=== PATIENT | female | born 1995 | race Caucasian/White ===

== ENCOUNTER 2017-07-10 22:38 | Emergency (ER) | payer BC, OTHER ==
--- NOTE | 2017-07-10 22:47 | ED ---
General Adult HPI - General Source: RN notes reviewed, old records reviewed <Best Guthrie - Last Filed: 07/10/17 23:47> <Delfino Guhtrie - Last Filed: 07/11/17 04:52> - General Stated complaint: Mental Health Time Seen by Provider: 07/10/17 22:46 - History of Present Illness Initial comments: This is a 22-year-old female the ER for evaluation of psychiatric illness, suicidal thoughts and attempts. Patient told family members she was going to jump off the bridge attempt to commit suicide today. Patient was found by PD and then brought to ER. The patient did try to run out of hospital, patient was then combative belligerent with staff, patient was severely emotional and not cooperative. Patient did admit to alcohol tonight (Best Guthrie) - Related Data Previous Rx's Medication Instructions Recorded Hydrocodone/Acetaminophen [[place] 1 each PO Q4HR PRN #20 tab 08/23/15 5-325] Ibuprofen [Motrin] 800 mg PO Q6HR PRN #20 tab 08/23/15 Allergies Allergy/AdvReac Type Severity Reaction Status Date / Time No Known Allergies Allergy Verified 08/23/15 14:19 Review of Systems ROS Other: All systems not noted in ROS Statement are negative. <Best Guthrie - Last Filed: 07/10/17 23:47> ROS Other: All systems not noted in ROS Statement are negative. <Delfino Guthrie - Last Filed: 07/11/17 04:52> ROS Statement: Those systems with pertinent positive or pertinent negative responses have been documented in the HPI. Past Medical History Past Medical History: No Reported History History of Any Multi-Drug Resistant Organisms: None Reported Past Surgical History: No Surgical Hx Reported Past Psychological History: ADD/ADHD, Anxiety Smoking Status: Current every day smoker Past Alcohol Use History: Rare Past Drug Use History: None Reported <Best Guthrie - Last Filed: 07/10/17 23:47> General Exam General appearance: alert, in no apparent distress, anxious, in distress Head exam: Present: atraumatic, normocephalic, normal inspection Eye exam: Present: normal appearance, PERRL, EOMI. Absent: scleral icterus, conjunctival injection, periorbital swelling ENT exam: Present: normal exam, mucous membranes moist Neck exam: Present: normal inspection. Absent: tenderness, meningismus, lymphadenopathy Respiratory exam: Present: normal lung sounds bilaterally. Absent: respiratory distress, wheezes, rales, rhonchi, stridor Cardiovascular Exam: Present: regular rate, normal rhythm, normal heart sounds. Absent: systolic murmur, diastolic murmur, rubs, gallop, clicks GI/Abdominal exam: Present: soft, normal bowel sounds. Absent: distended, tenderness, guarding, rebound, rigid Extremities exam: Present: normal inspection, full ROM, normal capillary refill. Absent: tenderness, pedal edema, joint swelling, calf tenderness Back exam: Present: normal inspection Neurological exam: Present: alert, oriented X3, CN II-XII intact Psychiatric exam: Present: normal affect, normal mood Skin exam: Present: warm, dry, intact, normal color. Absent: rash <Best Guthrie - Last Filed: 07/10/17 23:47> Course <Best Guthrie - Last Filed: 07/10/17 23:47> <Delfino Guthrie - Last Filed: 07/11/17 04:52> Vital Signs 07/10/17 22:49 Temperature 97.6 F Pulse Rate 101 H Respiratory 24 Rate Blood Pressure 144/84 O2 Sat by Pulse 97 Oximetry - Reevaluation(s) Reevaluation #1: 07/10/17 23:48 Patient is at this point appropriately calm and relaxed, will remove 07/10/17 23:48 Restraints will BE removed (Best Guthrie) Procedures - Restraint - Face to Face Restraint Occurrence 1 Patient's Immediate Situation: Endangers self safety, Endangers others' safety, Endangers staff safety Patient's Reaction to the Intervention: Uncooperative, Angry, Belligerent Patient's Medical & Behavioral Condition: Awake, Anxious, Agitated Face to Face Eval of Restraint Date: 07/10/17 Face to Face Eval of Restraint Time: 22:30 <Best Guthrie - Last Filed: 07/10/17 23:47> Medical Decision Making <Best Guthrie - Last Filed: 07/10/17 23:47> <Delfino Guthrie - Last Filed: 07/11/17 04:52> - Medical Decision Making The patient was endorsed to me at shift change and was pending evaluation by psychiatry after she was sober. Patient was deemed to be sober was evaluated she currently isn't a risk to herself or anyone else (Delfino Guthrie) Disposition <Best Guthrie - Last Filed: 07/10/17 23:47> <Delfino Guthrie - Last Filed: 07/11/17 04:52> Clinical Impression: Adjustment reaction, Alcohol intoxication Disposition: HOME SELF-CARE Condition: Good Instructions: Alcohol Intoxication (ED), Mood Disorders (ED) Referrals: None,Stated [Primary Care Provider] - 1-2 days
[2017-07-11 05:01] VITALS: BP 150/92; PULSE 86; RESP 16; TEMP 97.4
== END 2017-07-11 05:01 | disposition home or self-care (01) ==
LOC: EC 22:38
DX: F43.20 Adjustment disorder, unspecified (principal); F10.129 Alcohol abuse with intoxication, unspecified; R45.851 Suicidal ideations; F17.200 Nicotine dependence, unspecified, uncomplicated
CPT/HCPCS: 82075; 99284

== ENCOUNTER 2017-11-30 04:51 | Inpatient (IN) | payer BC, OTHER ==
[2017-11-30] MEDS ORDERED: SODIUM CHLORIDE 0.9% 500 ML IV STA (05:08)
[2017-11-30] MEDS ORDERED: SODIUM CHLORIDE 0.9% 1,000 ML IV STA ×2 (05:08→06:55)
[2017-11-30] MEDS ORDERED: KETOROLAC 30 MG/ML 1 ML VIAL IVP STA (05:09)
[2017-11-30] MEDS ORDERED: ACETAMINOPHEN TAB 500 MG TAB PO STA (05:09)
[2017-11-30 05:35] LABS: Basophils # (A) 0.1 k/uL (0-0.2); Basophils % (A) 1 %; Eosinophils # (A) 0.2 k/uL (0-0.7); Eosinophils % (A) 1 %; HCT 38.9 % (34.0-46.0); HGB 13.5 gm/dL (11.4-16.0); Lymphocytes # (A) 1.6 k/uL (1.0-4.8); Lymphocytes % (A) 12 %; MCH 33.2 pg (25.0-35.0); MCHC 34.7 g/dL (31.0-37.0); MCV 95.8 fL (80.0-100.0); Mean Platelet Volume 7.1; Monocytes # (A) 0.9 k/uL (0-1.0); Monocytes % (A) 7 %; Neutrophils # (A) 10.2 k/uL (1.3-7.7); Neutrophils % (A) 77 %; Platelet Count 240 k/uL (150-450); RBC 4.07 m/uL (3.80-5.40); RDW 13.4 % (11.5-15.5); WBC 13.2 k/uL (3.8-10.6)
[2017-11-30 05:38] LABS: Appearance,Urine Clear (Clear); Bacteria,Urine Rare /hpf; Bilirubin,Urine Negative (Negative); Blood,Urine Moderate (Negative); Color,Urine Yellow; Glucose,Urine (UA) Negative (Negative); Ketones,Urine 1+ (Negative); Leukocyte Esterase,Urine Negative (Negative); Mucus,Urine Rare /hpf; Nitrite,Urine Negative (Negative); PH, Urine 5.5 (5.0-8.0); Protein,Urine Negative (Negative); RBC,Urine 1 /hpf (0-5); Specific Gravity,Urine 1.015 (1.001-1.035); Squamous Epithelial Cell,Urine <1 /hpf (0-4); Urobilinogen,Urine <2.0 mg/dL (<2.0); WBC,Urine 1 /hpf (0-5)
--- NOTE | 2017-11-30 05:45 | ED ---
General Adult HPI - General Chief complaint: Extremity Problem,Nontraumatic Stated complaint: Medication reaction Time Seen by Provider: 11/30/17 04:52 Source: patient, RN notes reviewed, old records reviewed Mode of arrival: EMS Limitations: no limitations - History of Present Illness Initial comments: This is a 22-year-old female the ER for evaluation per patient does say for evaluation of multiple nonspecific complaints, left leg pain despite pain. Patient also complains of sore throat back pain. No travel history no known sick contacts. Patient has positive fever. She states she does not feel well. - Related Data Home Medications Medication Instructions Recorded Confirmed No Known Home Medications [No 11/30/17 11/30/17 Known Home Medications] Allergies Allergy/AdvReac Type Severity Reaction Status Date / Time No Known Allergies Allergy Verified 11/30/17 07:36 Review of Systems ROS Statement: Those systems with pertinent positive or pertinent negative responses have been documented in the HPI. ROS Other: All systems not noted in ROS Statement are negative. Past Medical History Past Medical History: No Reported History History of Any Multi-Drug Resistant Organisms: None Reported Past Surgical History: No Surgical Hx Reported Past Psychological History: ADD/ADHD, Anxiety Smoking Status: Current every day smoker Past Alcohol Use History: Rare Past Drug Use History: None Reported - Past Family History Mother Additional Family Medical History / Comment(s): Mother has herniated discs Father History Unknown: Yes General Exam Limitations: no limitations General appearance: alert, in no apparent distress Head exam: Present: atraumatic, normocephalic, normal inspection Eye exam: Present: normal appearance, PERRL, EOMI. Absent: scleral icterus, conjunctival injection, periorbital swelling ENT exam: Present: normal exam, mucous membranes moist Neck exam: Present: normal inspection. Absent: tenderness, meningismus, lymphadenopathy Respiratory exam: Present: normal lung sounds bilaterally. Absent: respiratory distress, wheezes, rales, rhonchi, stridor Cardiovascular Exam: Present: regular rate, normal rhythm, normal heart sounds. Absent: systolic murmur, diastolic murmur, rubs, gallop, clicks GI/Abdominal exam: Present: soft, normal bowel sounds. Absent: distended, tenderness, guarding, rebound, rigid Extremities exam: Present: normal inspection, full ROM, normal capillary refill. Absent: tenderness, pedal edema, joint swelling, calf tenderness Back exam: Present: normal inspection Neurological exam: Present: alert, oriented X3, CN II-XII intact Psychiatric exam: Present: normal affect, normal mood Skin exam: Present: warm, dry, intact, normal color. Absent: rash Course Vital Signs 11/30/17 11/30/17 04:58 06:30 Temperature 100.8 F H Pulse Rate 109 H Respiratory 16 16 Rate Blood Pressure 167/95 115/63 O2 Sat by Pulse 95 95 Oximetry - Reevaluation(s) Reevaluation #1: Patient is improved with fever control, hydration Medical Decision Making - Medical Decision Making 22 female the ER for evaluation of fever back pain left leg pain. On be in rhabdomyolysis. Patient does have persistent fever, x-ray and urine are negative. We'll admit for broad-spectrum antibiotics, patient To continue IV hydration, symptom management - Lab Data Result diagrams: 11/30/17 05:16 11/30/17 05:16 Lab Results 11/30/17 11/30/17 11/30/17 Range/Units 05:16 05:16 05:16 WBC (3.8-10.6) k/uL RBC (3.80-5.40) m/uL Hgb (11.4-16.0) gm/dL Hct (34.0-46.0) % MCV (80.0-100.0) fL MCH (25.0-35.0) pg MCHC (31.0-37.0) g/dL RDW (11.5-15.5) % Plt Count (150-450) k/uL Neutrophils % % Lymphocytes % % Monocytes % % Eosinophils % % Basophils % % Neutrophils # (1.3-7.7) k/uL Lymphocytes # (1.0-4.8) k/uL Monocytes # (0-1.0) k/uL Eosinophils # (0-0.7) k/uL Basophils # (0-0.2) k/uL Sodium 133 L (137-145) mmol/L Potassium 4.5 (3.5-5.1) mmol/L Chloride 96 L (98-107) mmol/L Carbon Dioxide 28 (22-30) mmol/L Anion Gap 9 mmol/L BUN 12 (7-17) mg/dL Creatinine 0.50 L (0.52-1.04) mg/dL Est GFR (CKD-EPI)AfAm >90 (>60 ml/min/1.73 sqM) Est GFR (CKD-EPI)NonAf >90 (>60 ml/min/1.73 sqM) Glucose 110 H (74-99) mg/dL Calcium 9.8 (8.4-10.2) mg/dL Phosphorus 2.7 (2.5-4.5) mg/dL Magnesium 1.7 (1.6-2.3) mg/dL Total Bilirubin 0.5 (0.2-1.3) mg/dL AST 249 H (14-36) U/L ALT 80 H (9-52) U/L Alkaline Phosphatase 88 (38-126) U/L Total Creatine Kinase 9477 H (30-135) U/L CK-MB (CK-2) 66.2 H* (0.0-2.4) ng/mL CK-MB (CK-2) Rel Index Troponin I (0.000-0.034) ng/mL C-Reactive Protein 39.9 H (<10.0) mg/L Total Protein 7.1 (6.3-8.2) g/dL Albumin 4.3 (3.5-5.0) g/dL Urine Color Yellow Urine Appearance Clear (Clear) Urine pH 5.5 (5.0-8.0) Ur Specific [place] 1.015 (1.001-1.035) Urine Protein Negative (Negative) Urine Glucose (UA) Negative (Negative) Urine Ketones 1+ H (Negative) Urine Blood Moderate H (Negative) Urine Nitrite Negative (Negative) Urine Bilirubin Negative (Negative) Urine Urobilinogen <2.0 (<2.0) mg/dL Ur Leukocyte Esterase Negative (Negative) Urine RBC 1 (0-5) /hpf Urine WBC 1 (0-5) /hpf Ur Squamous Epith Cells <1 (0-4) /hpf Urine Bacteria Rare H (None) /hpf Urine Mucus Rare H (None) /hpf Urine HCG, Qual (Not Detectd) Group A Strep Rapid (Negative) 11/30/17 11/30/17 11/30/17 Range/Units 05:16 05:16 05:16 WBC 13.2 H (3.8-10.6) k/uL RBC 4.07 (3.80-5.40) m/uL Hgb 13.5 (11.4-16.0) gm/dL Hct 38.9 (34.0-46.0) % MCV 95.8 (80.0-100.0) fL MCH 33.2 (25.0-35.0) pg MCHC 34.7 (31.0-37.0) g/dL RDW 13.4 (11.5-15.5) % Plt Count 240 (150-450) k/uL Neutrophils % 77 % Lymphocytes % 12 % Monocytes % 7 % Eosinophils % 1 % Basophils % 1 % Neutrophils # 10.2 H (1.3-7.7) k/uL Lymphocytes # 1.6 (1.0-4.8) k/uL Monocytes # 0.9 (0-1.0) k/uL Eosinophils # 0.2 (0-0.7) k/uL Basophils # 0.1 (0-0.2) k/uL Sodium (137-145) mmol/L Potassium (3.5-5.1) mmol/L Chloride (98-107) mmol/L Carbon Dioxide (22-30) mmol/L Anion Gap mmol/L BUN (7-17) mg/dL Creatinine (0.52-1.04) mg/dL Est GFR (CKD-EPI)AfAm (>60 ml/min/1.73 sqM) Est GFR (CKD-EPI)NonAf (>60 ml/min/1.73 sqM) Glucose (74-99) mg/dL Calcium (8.4-10.2) mg/dL Phosphorus (2.5-4.5) mg/dL Magnesium (1.6-2.3) mg/dL Total Bilirubin (0.2-1.3) mg/dL AST (14-36) U/L ALT (9-52) U/L Alkaline Phosphatase (38-126) U/L Total Creatine Kinase (30-135) U/L CK-MB (CK-2) (0.0-2.4) ng/mL CK-MB (CK-2) Rel Index Troponin I <0.012 (0.000-0.034) ng/mL C-Reactive Protein (<10.0) mg/L Total Protein (6.3-8.2) g/dL Albumin (3.5-5.0) g/dL Urine Color Urine Appearance (Clear) Urine pH (5.0-8.0) Ur Specific [place] (1.001-1.035) Urine Protein (Negative) Urine Glucose (UA) (Negative) Urine Ketones (Negative) Urine Blood (Negative) Urine Nitrite (Negative) Urine Bilirubin (Negative) Urine Urobilinogen (<2.0) mg/dL Ur Leukocyte Esterase (Negative) Urine RBC (0-5) /hpf Urine WBC (0-5) /hpf Ur Squamous Epith Cells (0-4) /hpf Urine Bacteria (None) /hpf Urine Mucus (None) /hpf Urine HCG, Qual (Not Detectd) Group A Strep Rapid Negative (Negative) 11/30/17 Range/Units 05:16 WBC (3.8-10.6) k/uL RBC (3.80-5.40) m/uL Hgb (11.4-16.0) gm/dL Hct (34.0-46.0) % MCV (80.0-100.0) fL MCH (25.0-35.0) pg MCHC (31.0-37.0) g/dL RDW (11.5-15.5) % Plt Count (150-450) k/uL Neutrophils % % Lymphocytes % % Monocytes % % Eosinophils % % Basophils % % Neutrophils # (1.3-7.7) k/uL Lymphocytes # (1.0-4.8) k/uL Monocytes # (0-1.0) k/uL Eosinophils # (0-0.7) k/uL Basophils # (0-0.2) k/uL Sodium (137-145) mmol/L Potassium (3.5-5.1) mmol/L Chloride (98-107) mmol/L Carbon Dioxide (22-30) mmol/L Anion Gap mmol/L BUN (7-17) mg/dL Creatinine (0.52-1.04) mg/dL Est GFR (CKD-EPI)AfAm (>60 ml/min/1.73 sqM) Est GFR (CKD-EPI)NonAf (>60 ml/min/1.73 sqM) Glucose (74-99) mg/dL Calcium (8.4-10.2) mg/dL Phosphorus (2.5-4.5) mg/dL Magnesium (1.6-2.3) mg/dL Total Bilirubin (0.2-1.3) mg/dL AST (14-36) U/L ALT (9-52) U/L Alkaline Phosphatase (38-126) U/L Total Creatine Kinase (30-135) U/L CK-MB (CK-2) (0.0-2.4) ng/mL CK-MB (CK-2) Rel Index Troponin I (0.000-0.034) ng/mL C-Reactive Protein (<10.0) mg/L Total Protein (6.3-8.2) g/dL Albumin (3.5-5.0) g/dL Urine Color Urine Appearance (Clear) Urine pH (5.0-8.0) Ur Specific [place] (1.001-1.035) Urine Protein (Negative) Urine Glucose (UA) (Negative) Urine Ketones (Negative) Urine Blood (Negative) Urine Nitrite (Negative) Urine Bilirubin (Negative) Urine Urobilinogen (<2.0) mg/dL Ur Leukocyte Esterase (Negative) Urine RBC (0-5) /hpf Urine WBC (0-5) /hpf Ur Squamous Epith Cells (0-4) /hpf Urine Bacteria (None) /hpf Urine Mucus (None) /hpf Urine HCG, Qual Not Detected (Not Detectd) Group A Strep Rapid (Negative) - Radiology Data Radiology results: report reviewed (CT lumbar spine, negative for acute disease CT abdomen and pelvis negative for acute disease, [place] lumbar spinal be pending), image reviewed Disposition Clinical Impression: Back pain, Left leg pain, Fever, Rhabdomyolysis Disposition: ADMITTED IP TO THIS HOSP Condition: Fair Is patient prescribed a controlled substance at d/c from ED?: No
[2017-11-30 05:50] LABS: ALT 80 U/L (9-52); AST 249 U/L (14-36); Albumin 4.3 g/dL (3.5-5.0); Alkaline Phosphatase 88 U/L (38-126); Anion Gap 9 mmol/L; Blood Urea Nitrogen 12 mg/dL (7-17); C Reactive Protein 39.9 mg/L (<10.0); Calcium 9.8 mg/dL (8.4-10.2); Carbon Dioxide 28 mmol/L (22-30); Chloride 96 mmol/L (98-107); Glucose 110 mg/dL (74-99); Magnesium 1.7 mg/dL (1.6-2.3); Phosphorus 2.7 mg/dL (2.5-4.5); Potassium 4.5 mmol/L (3.5-5.1); Sodium 133 mmol/L (137-145); Total Bilirubin 0.5 mg/dL (0.2-1.3); Total Protein 7.1 g/dL (6.3-8.2)
[2017-11-30 06:04] LABS: Creatine Kinase MB 66.2 ng/mL (0.0-2.4)
--- NOTE | 2017-11-30 06:16 | XR ---
EXAMINATION TYPE: XR chest 2V DATE OF EXAM: 11/30/2017 COMPARISON: NONE HISTORY: Cough TECHNIQUE: Frontal and lateral views of the chest are obtained. FINDINGS: Heart and mediastinum are normal. Lungs are clear. Diaphragm is normal. Bony thorax is int act. IMPRESSION: Normal chest
--- NOTE | 2017-11-30 06:16 | XR ---
EXAMINATION TYPE: XR knee complete LT DATE OF EXAM: 11/30/2017 COMPARISON: NONE HISTORY: Knee pain TECHNIQUE: 3 views FINDINGS: I see no fracture nor dislocation. Joint spaces are normal. There is no sign of knee joint effusion. IMPRESSION: Normal left knee.
[2017-11-30] MEDS ORDERED: VANCOMYCIN IV PER PHARMACY 1 EACH MISC MISCELLANE PRN (06:19)
[2017-11-30] MEDS ORDERED: AMPICILLIN-SULBACTAM 3 GM in SODIUM CHLORIDE 0.9% 100 ML IVPB STA (06:19)
[2017-11-30] MEDS ORDERED: SODIUM CHLORIDE 0.9% 1,000 ML IV ONE (06:54)
[2017-11-30] MEDS ORDERED: VANCOMYCIN 1,500 MG in SODIUM CHLORIDE 0.9% 250 ML IVPB ONE (07:00)
--- NOTE | 2017-11-30 07:21 | CT ---
EXAMINATION TYPE: CT lumbar spine w con DATE OF EXAM: 11/30/2017 COMPARISON: NONE HISTORY: Low back pain, abdominal pain CT DLP: Images pulled from abd/pel mGycm CONTRAST: CT scan of the lumbar is performed with IV Contrast, patient injected with 100 mL of Isovue 300. TECHNIQUE: CT of the lumbar spine is performed on a spiral scan at 3 mm thick sections. Reconstructed images are performed in the coronal and sagittal planes. FINDINGS: Disc spaces are evaluated in the axial plane. Reconstructed images in the coronal and sagit jevon plane are reviewed. Disc heights are preserved. No focal disc herniation or significant disc bulge is evident. No spinal canal stenosis or neural foraminal stenosis is present. There is some sacroiliac joint degenerative c hange present IMPRESSION: 1. Sacroiliac joint degenerative changes. 2. Normal CT lumbar spine
--- NOTE | 2017-11-30 07:26 | CT ---
EXAMINATION TYPE: CT abdomen pelvis w con DATE OF EXAM: 11/30/2017 COMPARISON: NONE INDICATION: Low back pain, abdominal pain DLP: 2984 mGycm, Automated exposure control for dose reduction was used. CONTRAST: 100 mL of Isovue 300. Study performed without Oral Contrast TECHNIQUE: Axial images were obtained from above the diaphragm to the pubic rami in the axial plane a t 5 mm thick sections. Reconstructed images are reviewed on the computer in the coronal plane. FINDINGS: Limited CT sections are obtained the lung bases. The lung bases are clear. CT ABDOMEN: Liver: Normal Spleen: Normal Pancreas: Normal Adrenal glands: There is calcification within the posterior limb of the right adrenal gland may repre sent prior hemorrhage. No enlargement of the adrenal glands is evident. Gallbladder: Decompressed but otherwise unremarkable Kidneys: No masses are evident. No hydronephrosis is present. No cysts are present. Delayed images were obtained through the kidneys, which remain unremarkable. Aorta: Normal Inferior vena cava: Normal. CT PELVIS: Fecal debris is through the colon. Small bowel loops without oral contrast appear unremarkable. Appendix: Normal as visualized. Urinary bladder: Normal. Genitourinary structures: Uterus has some prominent endometrium. There is a large left ovarian cyst m easuring 5.4 x 4.9 cm. Right adnexal regions unremarkable. Osseous structures: No suspicious lytic or sclerotic lesions. CT lumbar spine was reported separately . Sacroiliac joint degenerative change may be present. IMPRESSIONS: 1. Large left ovarian cyst. This could be followed with ultrasound. 2. CT abdomen otherwise appears unremarkable.
[2017-11-30] MEDS: AMPICILLIN-SULBACTAM 3 GM in SODIUM CHLORIDE 0.9% 100 ML IVPB SCH ×3 (12:44→23:35)
[2017-11-30] MEDS: KETOROLAC 30 MG/ML 1 ML VIAL IVP PRN ×2 (16:25→23:35)
[2017-11-30] MEDS: VANCOMYCIN 1,500 MG in SODIUM CHLORIDE 0.9% 250 ML IVPB SCH (18:24)
--- NOTE | 2017-11-30 20:52 | MR ---
EXAMINATION TYPE: MR lumbar spine wo/w con DATE OF EXAM: 11/30/2017 COMPARISON: NONE HISTORY: Lt leg pain, fever, abscess TECHNIQUE: Multiplanar, multisequence images of the lumbar spine were acquired utilizing 10 mL intravenous Gadav ist gadolinium contrast. The lumbar vertebra have normal spacing and alignment. Neural foramina appear widely patent. Posterio r elements are intact. Lumbar nerve roots appear normal. There is no lumbar paraspinal mass. There is no compression fracture. Sacroiliac joints are partly visualized and appear normal. I see no bony de structive process. IMPRESSION: Normal MR scan of the lumbar spine.
--- NOTE | 2017-11-30 23:23 | P.HPIM ---
History of Present Illness H&P Date: 11/30/17 Chief Complaint: Back pain and left thigh swelling Patient is a 22-year-old female without sputum and past medical history came to ER with complaints of left leg swelling started last night. Patient was also having fever and chills at home. Patient says that she was having cough and upper respiratory infection about one half week ago and also was having hoarseness. Patient improved symptomatically and developed back pain about 4 days back. Patient also developed leg swelling mainly left thigh swelling last night along with fever and chills which made her to come to Hospital for further evaluation. Patient was found have elevated CPK level, liver enzymes and mild leukocytosis. Patient had MRI lumbar spine showed no abnormality CT abdomen and pelvis showed large ovarian cyst. Otherwise unremarkable CT LS spine showed sacroiliac joint degenerative changes X-ray of the left knee and chest x-ray unremarkable. CRP 39.9 and slightly elevated liver enzymes AST and ALT UA negative for infection Patient denied any recent travel or unusual food intake. Strep throat is negative Review of Systems Constitutional: Patient denies any fever or chills . No generalized weakness or weight loss. Abdomen: Patient denied nausea vomiting and diarrhea and abdominal pain. Cardiovascular: Patient denies any chest pain or short of breath no palpitations. Respiratory: patient denied any cough is from production. No shortness of breath Neurologic: Patient denied any numbness or tingling headache. Musculoskeletal: Patient denies any complaints of joint swelling or deformity. Left thigh swelling and back pain Skin: Negative Psychiatric: Negative Endocrine: No heat or cold intolerance. No recent weight gain. Genitourinary: No dysuria or hematuria. All other 14 point ROS negative except the above Past Medical History Past Medical History: No Reported History History of Any Multi-Drug Resistant Organisms: None Reported Past Surgical History: No Surgical Hx Reported Past Anesthesia/Blood Transfusion Reactions: Unable to Obtain Additional Past Anesthesia/Blood Transfusion Reaction / Comment(s): Pt has never had general or spinal anesthesia Smoking Status: Current every day smoker - Past Family History Mother Additional Family Medical History / Comment(s): Mother has herniated discs Father History Unknown: Yes Medications and Allergies Home Medications Medication Instructions Recorded Confirmed Type No Known Home Medications [No 11/30/17 11/30/17 History Known Home Medications] Allergies Allergy/AdvReac Type Severity Reaction Status Date / Time No Known Allergies Allergy Verified 11/30/17 07:36 Physical Exam Vitals: Vital Signs Temp Pulse Pulse Resp BP BP Pulse Ox 11/30/17 08:25 98.1 F 106 H 20 124/82 97 11/30/17 06:30 109 H 16 115/63 95 11/30/17 04:58 100.8 F H 16 167/95 95 Intake and Output 11/29/17 11/30/17 11/30/17 22:59 06:59 14:59 Intake Total 200 Balance 200 Intake: Oral 200 Other: # Voids 1 Weight 86.183 kg 98.5 kg PHYSICAL EXAMINATION: Patient is lying in the bed comfortably, no acute distress, awake alert and oriented.. HEENT: Normocephalic. Neck is supple. Pupils reactive. Nostrils clear. Oral cavity is moist. Ears reveal no drainage. Neck reveals no JVD, carotid bruits, or thyromegaly. CHEST EXAMINATION: Trachea is central. Symmetrical expansion. Lung whiting clear to auscultation and percussion. CARDIAC: Normal S1, S2 with no gallops. No murmurs ABDOMEN: Soft. Bowel sounds normal. No organomegaly. No abdominal bruits. Extremities: reveal no edema. No clubbing or cyanosis. Left thigh redness and mild swelling about the knee joint. No joint swelling. Normal range of motion. Neurologically awake, alert, oriented x3 with well-coordinated movements. No focal deficits noted Skin: No rash or skin lesions. Psychiatric: Coperative. Nonsuicidal Musculoskeletal: No joint swelling or deformity. Normal range of motion. Results CBC & Chem 7: 11/30/17 05:16 11/30/17 05:16 Labs: Abnormal Lab Results - Last 24 Hours (Table) 11/30/17 11/30/17 11/30/17 Range/Units 05:16 05:16 05:16 WBC (3.8-10.6) k/uL Neutrophils # (1.3-7.7) k/uL Sodium 133 L (137-145) mmol/L Chloride 96 L (98-107) mmol/L Creatinine 0.50 L (0.52-1.04) mg/dL Glucose 110 H (74-99) mg/dL AST 249 H (14-36) U/L ALT 80 H (9-52) U/L Total Creatine Kinase 9477 H (30-135) U/L CK-MB (CK-2) 66.2 H* (0.0-2.4) ng/mL C-Reactive Protein 39.9 H (<10.0) mg/L Urine Ketones 1+ H (Negative) Urine Blood Moderate H (Negative) Urine Bacteria Rare H (None) /hpf Urine Mucus Rare H (None) /hpf 11/30/17 Range/Units 05:16 WBC 13.2 H (3.8-10.6) k/uL Neutrophils # 10.2 H (1.3-7.7) k/uL Sodium (137-145) mmol/L Chloride (98-107) mmol/L Creatinine (0.52-1.04) mg/dL Glucose (74-99) mg/dL AST (14-36) U/L ALT (9-52) U/L Total Creatine Kinase (30-135) U/L CK-MB (CK-2) (0.0-2.4) ng/mL C-Reactive Protein (<10.0) mg/L Urine Ketones (Negative) Urine Blood (Negative) Urine Bacteria (None) /hpf Urine Mucus (None) /hpf Microbiology - Last 24 Hours (Table) 11/30/17 05:16 Urine Culture - Preliminary Urine,Clean Catch 11/30/17 05:16 Group A Strep Throat Culture - Preliminary Throat Thrombosis Risk Factor Assmnt - DVT/VTE Prophylaxis DVT/VTE Prophylaxis: Pharmacologic Prophylaxis ordered - Choose All That Apply Any of the Below Risk Factors Present?: Yes Each Factor Represents 1 point: Obesity (BMI >25) Other Risk Factors: No Other congenital or acquired thrombophilia - If yes, enter type in comment: No Thrombosis Risk Factor Assessment Total Risk Factor Score: 1 Thrombosis Risk Factor Assessment Level: Low Risk Assessment and Plan Assessment: SIRS with unknown source of infection. Fever tachycardia leukocytosis. Possible viral etiology Acute rhabdomyolysis. Possible myositis Back pain. CT and MRI negative for any bony abnormality Recent upper respiratory infection Slightly elevated liver enzymes Large left ovarian cyst Plan: 18. Male with a known history of recent upper respiratory infection admitted to hospital with complaints of back pain for 4 days and left thigh swelling for 2 days with elevated CPK level around 9000. Imaging studies showed no acute abnormality. Patient will be continued on IV hydration and broad-spectrum antibiotics. We will follow up culture reports and further recommendations based on the clinical course. will consult infectious diseases for further workup. Follow-up repeat lab workup in the morning. Time with Patient: Greater than 30
[2017-12-01] MEDS: HEPARIN SODIUM,PORCINE 5,000 UNIT/ML 1 ML VIAL SQ SCH ×2 (00:15→08:54)
[2017-12-01] MEDS: SODIUM CHLORIDE 0.9% 1,000 ML IV SCH ×2 (01:53→09:07)
[2017-12-01] MEDS: VANCOMYCIN 1,500 MG in SODIUM CHLORIDE 0.9% 250 ML IVPB SCH ×2 (01:54→09:02)
[2017-12-01] MEDS: AMPICILLIN-SULBACTAM 3 GM in SODIUM CHLORIDE 0.9% 100 ML IVPB SCH ×2 (06:07→12:00)
[2017-12-01] MEDS: KETOROLAC 30 MG/ML 1 ML VIAL IVP PRN (06:15)
[2017-12-01 07:39] LABS: ALT 70 U/L (9-52); AST 184 U/L (14-36); Albumin 3.2 g/dL (3.5-5.0); Alkaline Phosphatase 67 U/L (38-126); Anion Gap 7 mmol/L; Blood Urea Nitrogen 7 mg/dL (7-17); Calcium 8.5 mg/dL (8.4-10.2); Carbon Dioxide 25 mmol/L (22-30); Chloride 105 mmol/L (98-107); Glucose 96 mg/dL (74-99); Potassium 4.1 mmol/L (3.5-5.1); Sodium 137 mmol/L (137-145); Total Bilirubin 0.5 mg/dL (0.2-1.3); Total Protein 5.7 g/dL (6.3-8.2)
[2017-12-01 08:27] LABS: Creatine Kinase 5124 U/L (30-135)
[2017-12-01 08:57] VITALS: RESP 16
[2017-12-01 12:59] VITALS: BP 129/86; PULSE 76; TEMP 98.3
--- NOTE | 2017-12-01 16:13 | CONS ---
CONSULTATION DATE OF SERVICE: 12/01/2017 REASON FOR CONSULTATION: Fever/sepsis. HISTORY OF PRESENT ILLNESS: The patient is a 22-year-old female presenting to the ER at [facility] yesterday with the chief complaints of some sore throat and back pain. The patient did have symptoms of congestion that have been going on for about 3-4 days. The patient's cough is mostly dry in nature. Not bringing up any sputum. Denies significant shortness of breath with it. URI symptoms are mostly a sore throat but no runny nose or pain in the ear. Patient did have some low-grade fever at home. Subsequently she noted pain to the left leg with pain in the back area without any history of any trauma or fall. Pain is described to more of a dull aching pain 4 to 5 out of 10, and no radiation. Denies having any weakness in the leg. No bowel or bladder problems. With these symptoms, the patient had multiple investigations done in the ER, where the patient was noticed to have a fever of 100.8 on presentation. Her white count was mildly elevated at 13.2. The ALT and AST were elevated as well as CPK. Urine has been showing mostly hematuria. Influenza PCR was negative. Rapid strep test was negative. The patient did have a CT of the abdomen and pelvis; the lung bases were clear, liver was normal, pancreas was normal. There was a large left ovarian cyst to be followed with an ultrasound. A CT as well as lumbar spine MRI was negative for any acute abnormality. Patient's chest x-ray was negative. She has been treated with vancomycin and Unasyn. Infection Disease was consulted for further recommendations regarding antibiotic therapy. As of this morning the patient's fever has resolved and the patient denies having any chest pain. Cough has decreased in intensity. No nausea. No vomiting. No abdominal pain. No diarrhea. No worsening of back or left leg pain. REVIEW OF SYSTEMS: CONSTITUTIONAL: Positive for weakness and low-grade fever. EYES: No complaint. ENT: As per HPI. RESPIRATORY: As per HPI. CARDIOVASCULAR: No complaint. GENITOURINARY: No complaint. GASTROINTESTINAL: No complaint. MUSCULOSKELETAL: As per HPI. INTEGUMENTARY: No complaint. PSYCHOLOGICAL: No complaint. ENDOCRINE: No complaint. NEUROLOGICAL: No complaint. PAST MEDICAL HISTORY: No major illnesses. PAST SURGICAL HISTORY: No surgeries. SOCIAL HISTORY: Positive for smoking. Denies any drinking or drug use. FAMILY HISTORY: Mother with history of herniated disc. ALLERGIES: NO KNOWN DRUG ALLERGIES. CURRENT MEDICATION: 1. Vancomycin, Pharmacy to dose. 2. Toradol. 3. Heparin. 4. Unasyn 3 grams q.6. PHYSICAL EXAMINATION: Her blood pressure is 129/86, pulse of 76, temperature 98.3, T-max 100.8. She is 97% on room air. General description is a young female lying in bed in no distress. No tachypnea or accessory muscle of respiration use. HEENT examination shows no pallor or scleral icterus. Oral mucous membrane is moist. No pharyngeal erythema or thrush. NECK: Trachea is central. No thyromegaly. LUNGS: Unlabored breathing. Clear to auscultation. No wheeze or crackle. HEART: S1, S2. Regular rate and rhythm. ABDOMEN: Soft. No tenderness. No guarding or rigidity. EXTREMITIES: No edema feet. SKIN EXAMINATION: No rash or mass palpable. Neurologically patient is awake, alert, oriented x3. Mood and affect normal. LABS: Hemoglobin 13.5, white count 13.2, BUN 7, creatinine 0.52. Electrolytes have been normal. Liver enzymes subsequently improved. Influenza PCR was negative. DIAGNOSTIC IMPRESSION AND PLAN: Patient presenting to the hospital with fever and chills did have upper respiratory symptoms. Also complaining of a cough, but not bringing up any sputum. Chest x-ray was negative for any pneumonia. She has been complaining of pain in the back with some radiation to the left leg; however, MRI of the lumbosacral spine was negative for any acute abnormality. The symptoms could be more likely a viral syndrome, especially with elevated liver enzymes. However, underlying bronchitis not entirely excluded from a respiratory pathogen. PLAN: 1. Will check an acute hepatitis panel. 2. Patient is being insistent on going home. She can be transitioned to oral Ceftin 500 mg twice a day for about a week. Five-day prescription sent to Pharmacy. Unasyn and vancomycin can be discontinued. 3. Patient advised to follow up in the outpatient setting, and if any recurrence of fever to let us know right away. MMODL / IJN: [id number] /
[2017-12-01] MEDS ORDERED: VANCOMYCIN TROUGH DUE 1 EACH MISC MISCELLANE ONE (17:00)
[2017-12-01 21:08] LABS: Hepatitis A Antibody IgM Non-Reactive (Non-Reactive); Hepatitis B Core IgM Non-Reactive (Non-Reactive)
--- NOTE | 2017-12-02 06:54 | DS ---
DISCHARGE SUMMARY DATE OF SERVICE: 12/01/2017 FINAL DIAGNOSES: 1. Fever, upper respiratory infection, possible viral syndrome with SIRS. 2. Rhabdomyolysis. 3. Possible myositis. 4. Back pain, degenerative joint disease. 5. Slightly elevated liver enzymes. 6. Large left ovarian cyst. DISCHARGE DISPOSITION: The patient will be discharged in stable condition with guarded prognosis. HISTORY OF PRESENT ILLNESS: This 22-year-old woman with a past history of multiple medical problems was admitted with a fever, upper respiratory infections, pain in the right thigh and features of rhabdomyolysis. Treated symptomatically. Dr. Maya saw the patient and currently the WBC 13.2, sodium 137, and AST is 194 and ALT 70. Creatine kinase 5124. The patient improved significantly. Influenza is negative. EXAM: Vitals are stable. Cardiovascular: S1, S2 Respiratory: No rhonchi, no crackles. Abdomen: Soft. Nervous System: No focal deficits. DISCHARGE ADVICE AND MEDICATIONS: 1. Diet is cardiac. 2. Activity limited until followup. 3. Follow up with Dr. Hernández in 2-3 days. 4. Followup labs. 5. Follow with Dr. Maya as advised. MEDICATIONS: 1. Tylenol 650 q.6h p.r.n. 2. Ceftin 500 mg p.o. b.i.d. for 5 days. Once again, the patient is being discharged in stable condition with guarded prognosis. MMODL / IJN: [id number] /
== END 2017-12-01 15:13 | disposition home or self-care (01) | DRG 153 ==
LOC: EC 04:51 → 6PED 06:56
PROVIDERS: ADMIT Hospitalist; ATTEND Hospitalist
DX: J06.9 Acute upper respiratory infection, unspecified (principal); M62.82 Rhabdomyolysis; M47.9 Spondylosis, unspecified; N83.202 Unspecified ovarian cyst, left side; R74.8 Abnormal levels of other serum enzymes; F17.200 Nicotine dependence, unspecified, uncomplicated
CPT/HCPCS: 36415; 71046; 72132; 72158; 74177; 80053; 80074; 81001; 81025; 82550; 82553; 83735; 84100; 84484; 85025; 86140; 87040; 87081; 87086; 87430; 87502; 96365; 96375; 99285

== ENCOUNTER 2017-12-03 21:01 | Emergency (ER) | payer BC, OTHER ==
[2017-12-03] MEDS ORDERED: SODIUM CHLORIDE 0.9% 1,000 ML IV STA (21:39)
[2017-12-03 21:53] LABS: Basophils # (A) 0.1 k/uL (0-0.2); Basophils % (A) 1 %; Eosinophils # (A) 0.2 k/uL (0-0.7); Eosinophils % (A) 2 %; HCT 40.2 % (34.0-46.0); HGB 13.4 gm/dL (11.4-16.0); Lymphocytes # (A) 3.2 k/uL (1.0-4.8); Lymphocytes % (A) 34 %; MCH 32.8 pg (25.0-35.0); MCHC 33.4 g/dL (31.0-37.0); Mean Platelet Volume 7.8; Monocytes # (A) 0.7 k/uL (0-1.0); Monocytes % (A) 7 %; Neutrophils # (A) 4.9 k/uL (1.3-7.7); Neutrophils % (A) 52 %; Platelet Count 265 k/uL (150-450); WBC 9.5 k/uL (3.8-10.6)
[2017-12-03 22:02] LABS: Appearance,Urine Clear (Clear); Bacteria,Urine Rare /hpf; Bilirubin,Urine Negative (Negative); Blood,Urine Negative (Negative); Budding Yeast,Urine Occasional /hpf; Color,Urine Light Yellow; Glucose,Urine (UA) Trace (Negative); Ketones,Urine Negative (Negative); Leukocyte Esterase,Urine Negative (Negative); Mucus,Urine Rare /hpf; Nitrite,Urine Negative (Negative); PH, Urine 6.5 (5.0-8.0); Protein,Urine 1+ (Negative); RBC,Urine <1 /hpf (0-5); Specific Gravity,Urine 1.004 (1.001-1.035); Squamous Epithelial Cell,Urine <1 /hpf (0-4); Urobilinogen,Urine <2.0 mg/dL (<2.0); WBC,Urine 1 /hpf (0-5)
[2017-12-03 22:05] LABS: Amphetamine Screen,Urine Not Detected (NotDetected); Benzodiazepines Screen,Urine Not Detected (NotDetected); Cocaine Screen,Urine Not Detected (NotDetected); Methadone Screen, Urine Not Detected (NotDetected); Opiate Screen,Urine Detected (NotDetected); Phencyclidine Screen,Urine Not Detected (NotDetected); Tricyclic Antidepressant,Urine Not Detected (NotDetected); Urn Cannabinoid Scrn Not Detected (NotDetected)
[2017-12-03 22:06] LABS: Barbiturate Screen,Urine Not Detected (NotDetected); Oxycodone Screen, Urine Not Detected (NotDetected)
[2017-12-03 22:08] LABS: ALT 66 U/L (9-52); AST 92 U/L (14-36); Acetaminophen <10.0 ug/mL; Albumin 4.3 g/dL (3.5-5.0); Alkaline Phosphatase 59 U/L (38-126); Anion Gap 18 mmol/L; Blood Urea Nitrogen 7 mg/dL (7-17); Calcium 8.7 mg/dL (8.4-10.2); Carbon Dioxide 17 mmol/L (22-30); Chloride 109 mmol/L (98-107); Glucose 183 mg/dL (74-99); Potassium 3.7 mmol/L (3.5-5.1); Salicylate <1.0 mg/dL; Sodium 144 mmol/L (137-145); Total Bilirubin 0.3 mg/dL (0.2-1.3)
--- NOTE | 2017-12-03 22:23 | ED ---
Overdose HPI - General Chief Complaint: Overdose Stated Complaint: Overdose Time Seen by Provider: 12/03/17 21:38 Source: patient, police, EMS Mode of arrival: EMS Limitations: no limitations - History of Present Illness Initial Comments: 22-year-old female patient presents to the emergency department today for evaluation as she had an episode where her respirations decreased in number and she became unconscious. Patient's family called for a dental respirations. Upon EMS arrival patient was unconscious, breathing heavily, they did administer 0.5 mg of Narcan and patient came around and started breathing normally. At this time patient denies any alcohol or drug use. Denies any history of similar symptoms. She states that she feels fine at this time and like to be discharged. Patient denies any recent rash, fever, chills, shortness breath, chest pain, abdominal pain, nausea, vomiting, diarrhea, constipation, back pain, numbness, tingling, dizziness, weakness, hematuria, dysuria, urinary urgency, urinary frequency, headache, visual changes, or any other complaints. - Related Data Previous Rx's Medication Instructions Recorded Acetaminophen Tab [Tylenol Tab] 650 mg PO Q6H PRN #30 tablet 12/01/17 Cefuroxime Axetil [Ceftin] 500 mg PO BID #10 tab 12/01/17 Allergies Allergy/AdvReac Type Severity Reaction Status Date / Time No Known Allergies Allergy Verified 12/03/17 21:42 Review of Systems ROS Statement: Those systems with pertinent positive or pertinent negative responses have been documented in the HPI. ROS Other: All systems not noted in ROS Statement are negative. Past Medical History Past Medical History: No Reported History History of Any Multi-Drug Resistant Organisms: None Reported Past Surgical History: No Surgical Hx Reported Past Anesthesia/Blood Transfusion Reactions: Unable to Obtain Additional Past Anesthesia/Blood Transfusion Reaction / Comment(s): Pt has never had general or spinal anesthesia Past Psychological History: ADD/ADHD, Anxiety Smoking Status: Current every day smoker Past Alcohol Use History: Occasional Past Drug Use History: Heroin - Past Family History Mother Additional Family Medical History / Comment(s): Mother has herniated discs Father History Unknown: Yes General Exam Limitations: no limitations General appearance: alert, in no apparent distress, appears intoxicated, anxious Eye exam: Present: normal appearance, PERRL, EOMI. Absent: scleral icterus, conjunctival injection, nystagmus, periorbital swelling ENT exam: Present: normal exam, normal oropharynx, mucous membranes moist Respiratory exam: Present: normal lung sounds bilaterally. Absent: respiratory distress, wheezes, rales, rhonchi, stridor Cardiovascular Exam: Present: normal rhythm, tachycardia, normal heart sounds. Absent: systolic murmur, diastolic murmur, rubs, gallop, clicks GI/Abdominal exam: Present: soft, normal bowel sounds. Absent: distended, tenderness, guarding, rebound, rigid Neurological exam: Present: alert, oriented X3, CN II-XII intact Psychiatric exam: Present: anxious, other (Crying). Absent: homicidal ideation , suicidal ideation Skin exam: Present: warm, dry, intact, normal color. Absent: rash Course Vital Signs 12/03/17 12/03/17 12/03/17 21:11 21:33 22:24 Temperature 99.1 F Pulse Rate 121 H 122 H 111 H Respiratory 22 16 16 Rate Blood Pressure 129/59 O2 Sat by Pulse 98 96 95 Oximetry 12/03/17 12/04/17 12/04/17 22:57 00:10 01:30 Temperature Pulse Rate 99 99 98 Respiratory 18 18 18 Rate Blood Pressure 107/57 O2 Sat by Pulse 96 97 97 Oximetry 12/04/17 02:40 Temperature 98.6 F Pulse Rate 105 H Respiratory 18 Rate Blood Pressure 138/66 O2 Sat by Pulse 96 Oximetry Medical Decision Making - Medical Decision Making 22-year-old female patient presented to the emergency department today brought in by EMS after family members found her having agonal respirations after an apparent overdose. Patient was given 0.5 mg of Narcan in EMS and did have return of spontaneous respirations and return of consciousness. Physical examination is unremarkable. Patient is neurologically intact. Patient denies any alcohol or drug use. Patient alcohol level was 180 on the breath alcohol test. Labs reviewed and are relatively unremarkable however patient did have a drug screen positive for opiates. Patient, cooperative through stay. Once sober she was discharged home into the care of her aunt. We did discuss avoiding use of street drugs including heroin in the future. She is instructed to follow-up with her primary care physician for recheck in 1-2 days. Return parameters discussed in detail. She verbalizes understanding and agrees with this plan. - Lab Data Result diagrams: 12/03/17 21:44 12/03/17 21:44 Lab Results 12/03/17 12/03/17 12/03/17 Range/Units 21:44 21:44 21:44 WBC 9.5 (3.8-10.6) k/uL RBC 4.10 (3.80-5.40) m/uL Hgb 13.4 (11.4-16.0) gm/dL Hct 40.2 (34.0-46.0) % MCV 98.0 (80.0-100.0) fL MCH 32.8 (25.0-35.0) pg MCHC 33.4 (31.0-37.0) g/dL RDW 13.0 (11.5-15.5) % Plt Count 265 (150-450) k/uL Neutrophils % 52 % Lymphocytes % 34 % Monocytes % 7 % Eosinophils % 2 % Basophils % 1 % Neutrophils # 4.9 (1.3-7.7) k/uL Lymphocytes # 3.2 (1.0-4.8) k/uL Monocytes # 0.7 (0-1.0) k/uL Eosinophils # 0.2 (0-0.7) k/uL Basophils # 0.1 (0-0.2) k/uL Sodium 144 (137-145) mmol/L Potassium 3.7 (3.5-5.1) mmol/L Chloride 109 H (98-107) mmol/L Carbon Dioxide 17 L (22-30) mmol/L Anion Gap 18 mmol/L BUN 7 (7-17) mg/dL Creatinine 0.70 (0.52-1.04) mg/dL Est GFR (CKD-EPI)AfAm >90 (>60 ml/min/1.73 sqM) Est GFR (CKD-EPI)NonAf >90 (>60 ml/min/1.73 sqM) Glucose 183 H (74-99) mg/dL Calcium 8.7 (8.4-10.2) mg/dL Total Bilirubin 0.3 (0.2-1.3) mg/dL AST 92 H (14-36) U/L ALT 66 H (9-52) U/L Alkaline Phosphatase 59 (38-126) U/L Total Protein 7.0 (6.3-8.2) g/dL Albumin 4.3 (3.5-5.0) g/dL Urine Color Light Yellow Urine Appearance Clear (Clear) Urine pH 6.5 (5.0-8.0) Ur Specific [place] 1.004 (1.001-1.035) Urine Protein 1+ H (Negative) Urine Glucose (UA) Trace H (Negative) Urine Ketones Negative (Negative) Urine Blood Negative (Negative) Urine Nitrite Negative (Negative) Urine Bilirubin Negative (Negative) Urine Urobilinogen <2.0 (<2.0) mg/dL Ur Leukocyte Esterase Negative (Negative) Urine RBC <1 (0-5) /hpf Urine WBC 1 (0-5) /hpf Ur Squamous Epith Cells <1 (0-4) /hpf Urine Bacteria Rare H (None) /hpf Urine Mucus Rare H (None) /hpf Urine Yeast (Budding) Occasional H (None) /hpf Salicylates <1.0 mg/dL Urine Opiates Screen Detected H (NotDetected) Ur Oxycodone Screen Not Detected (NotDetected) Urine Methadone Screen Not Detected (NotDetected) Ur Propoxyphene Screen Not Detected (NotDetected) Acetaminophen <10.0 ug/mL Ur Barbiturates Screen Not Detected (NotDetected) U Tricyclic Antidepress Not Detected (NotDetected) Ur Phencyclidine Scrn Not Detected (NotDetected) Ur Amphetamines Screen Not Detected (NotDetected) U Methamphetamines Scrn Not Detected (NotDetected) U Benzodiazepines Scrn Not Detected (NotDetected) Urine Cocaine Screen Not Detected (NotDetected) U Marijuana (THC) Screen Not Detected (NotDetected) Disposition Clinical Impression: Opiate overdose, Alcohol intoxication Disposition: HOME SELF-CARE Condition: Good Instructions: Narcotic Abuse (ED), Alcohol Intoxication (ED) Additional Instructions: Avoid use of drugs. Follow-up through primary care physician for recheck in 1- 2 days. Return here immediately for any new, worsening, or concerning symptoms. Is patient prescribed a controlled substance at d/c from ED?: No Referrals: None,Stated [Primary Care Provider] - 1-2 days Time of Disposition: 01:53
[2017-12-03 22:57] VITALS: RESP 18
[2017-12-04 02:42] VITALS: BP 138/66; PULSE 105; TEMP 98.6
== END 2017-12-04 02:40 | disposition home or self-care (01) ==
LOC: EC 21:01
DX: T40.601A Poisoning by unspecified narcotics, accidental (unintentional), initial encounter (principal); F10.129 Alcohol abuse with intoxication, unspecified; F17.200 Nicotine dependence, unspecified, uncomplicated
CPT/HCPCS: 36415; 80053; 80306; 81001; 82075; 83520; 85025; 96360; 99284

== ENCOUNTER 2018-01-16 09:54 | Emergency (ER) | payer BC, OTHER ==
[2018-01-16 10:01] VITALS: TEMP 98.5
[2018-01-16] MEDS ORDERED: SODIUM CHLORIDE 0.9% 1,000 ML IV ONE (10:19)
[2018-01-16] MEDS ORDERED: ONDANSETRON 4 MG/2 ML VIAL IVP STA (10:20)
[2018-01-16] MEDS ORDERED: ACETAMINOPHEN TAB 500 MG TAB PO STA (10:21)
--- NOTE | 2018-01-16 10:26 | ED ---
General Adult HPI - General Chief complaint: Nausea/Vomiting/Diarrhea Stated complaint: nausea/vomiting Time Seen by Provider: 01/16/18 10:00 Source: patient, EMS, RN notes reviewed Mode of arrival: EMS Limitations: no limitations - History of Present Illness Initial comments: This is a 23-year-old female who presents emergency Department complaining of vomiting for the last 4 days. Patient states she is a daily drinker of at least a fifth. Patient states she has hepatitis C and ever since she found out she has hepatitis C from her drug abuse years ago she has started drinking heavily. Patient denies any abdominal pain. Patient denies any blood in the vomitus. Patient denies any fever or chills. Patient denies any chest pain difficulty breathing shortness of breath. Patient denies any diarrhea. Patient states she hasn't been drinking in the last 4 days. - Related Data Previous Rx's Medication Instructions Recorded Acetaminophen Tab [Tylenol Tab] 650 mg PO Q6H PRN #30 tablet 12/01/17 Cefuroxime Axetil [Ceftin] 500 mg PO BID #10 tab 12/01/17 Allergies Allergy/AdvReac Type Severity Reaction Status Date / Time No Known Allergies Allergy Verified 01/16/18 09:59 Review of Systems ROS Statement: Those systems with pertinent positive or pertinent negative responses have been documented in the HPI. ROS Other: All systems not noted in ROS Statement are negative. Past Medical History Past Medical History: No Reported History Additional Past Medical History / Comment(s): hepatitis C History of Any Multi-Drug Resistant Organisms: None Reported Past Surgical History: No Surgical Hx Reported Past Anesthesia/Blood Transfusion Reactions: Unable to Obtain Additional Past Anesthesia/Blood Transfusion Reaction / Comment(s): Pt has never had general or spinal anesthesia Past Psychological History: ADD/ADHD, Anxiety Smoking Status: Current every day smoker Past Alcohol Use History: Daily Past Drug Use History: Heroin - Past Family History Mother Additional Family Medical History / Comment(s): Mother has herniated discs Father History Unknown: Yes General Exam - General Exam Comments Initial Comments: GENERAL: Patient is well-developed and well-nourished. Patient is nontoxic and well- hydrated and is in mild distress. Patient does smell of alcohol ENT: Neck is soft and supple. No significant lymphadenopathy is noted. Oropharynx is clear. Moist mucous membranes. Neck has full range of motion without eliciting any pain. EYES: The sclera were anicteric and conjunctiva were pink and moist. Extraocular movements were intact and pupils were equal round and reactive to light. Eyelids were unremarkable. PULMONARY: Unlabored respirations. Good breath sounds bilaterally. No audible rales rhonchi or wheezing was noted. CARDIOVASCULAR: There is a regular rate and rhythm without any murmurs gallops or rubs. ABDOMEN: Soft and nontender with normal bowel sounds. No palpable organomegaly was noted. There is no palpable pulsatile mass. SKIN: Skin is clear with no lesions or rashes and otherwise unremarkable. NEUROLOGIC: Patient is alert and oriented x3. Cranial nerves II through XII are grossly intact. Motor and sensory are also intact. Normal speech, volume and content. Symmetrical smile. MUSCULOSKELETAL: Normal extremities with adequate strength and full range of motion. No lower extremity swelling or edema. No calf tenderness. LYMPHATICS: No significant lymphadenopathy is noted PSYCHIATRIC: Normal psychiatric evaluation. Limitations: no limitations Course Vital Signs 01/16/18 01/16/18 09:59 11:22 Temperature 98.5 F Pulse Rate 98 92 Respiratory 16 18 Rate Blood Pressure 123/80 122/79 O2 Sat by Pulse 96 95 Oximetry Medical Decision Making - Medical Decision Making patient had told me she hadn't been drinking clearly she has been drinking. Patient states after we gave her fluid and Zofran she feels considerably better and is ready to go home. - Lab Data Result diagrams: 01/16/18 10:30 01/16/18 10:30 Lab Results 01/16/18 01/16/18 01/16/18 Range/Units 10:15 10:15 10:15 WBC (3.8-10.6) k/uL RBC (3.80-5.40) m/uL Hgb (11.4-16.0) gm/dL Hct (34.0-46.0) % MCV (80.0-100.0) fL MCH (25.0-35.0) pg MCHC (31.0-37.0) g/dL RDW (11.5-15.5) % Plt Count (150-450) k/uL Neutrophils % (Manual) % Lymphocytes % (Manual) % Monocytes % (Manual) % Basophils % (Manual) % Neutrophils # (Manual) (1.3-7.7) k/uL Lymphocytes # (Manual) (1.0-4.8) k/uL Monocytes # (Manual) (0-1.0) k/uL Basophils # (Manual) (0-0.2) k/uL Nucleated RBCs (0-0) /100 WBC Manual Slide Review RBC Morphology Sodium (137-145) mmol/L Potassium (3.5-5.1) mmol/L Chloride (98-107) mmol/L Carbon Dioxide (22-30) mmol/L Anion Gap mmol/L BUN (7-17) mg/dL Creatinine (0.52-1.04) mg/dL Est GFR (CKD-EPI)AfAm (>60 ml/min/1.73 sqM) Est GFR (CKD-EPI)NonAf (>60 ml/min/1.73 sqM) Glucose (74-99) mg/dL Calcium (8.4-10.2) mg/dL Magnesium (1.6-2.3) mg/dL Total Bilirubin (0.2-1.3) mg/dL AST (14-36) U/L ALT (9-52) U/L Alkaline Phosphatase (38-126) U/L Total Protein (6.3-8.2) g/dL Albumin (3.5-5.0) g/dL Amylase (30-110) U/L Lipase (23-300) U/L Urine Color Yellow Urine Appearance Cloudy H (Clear) Urine pH 5.5 (5.0-8.0) Ur Specific [place] 1.023 (1.001-1.035) Urine Protein 1+ H (Negative) Urine Glucose (UA) Negative (Negative) Urine Ketones Trace H (Negative) Urine Blood Large H (Negative) Urine Nitrite Negative (Negative) Urine Bilirubin Negative (Negative) Urine Urobilinogen 2.0 (<2.0) mg/dL Ur Leukocyte Esterase Negative (Negative) Urine RBC 8 H (0-5) /hpf Urine WBC 4 (0-5) /hpf Ur Squamous Epith Cells 28 H (0-4) /hpf Amorphous Sediment Rare H (None) /hpf Urine Mucus Occasional H (None) /hpf Urine HCG, Qual Not Detected (Not Detectd) Urine Opiates Screen Not Detected (NotDetected) Ur Oxycodone Screen Not Detected (NotDetected) Urine Methadone Screen Not Detected (NotDetected) Ur Propoxyphene Screen Not Detected (NotDetected) Ur Barbiturates Screen Not Detected (NotDetected) U Tricyclic Antidepress Not Detected (NotDetected) Ur Phencyclidine Scrn Not Detected (NotDetected) Ur Amphetamines Screen Not Detected (NotDetected) U Methamphetamines Scrn Not Detected (NotDetected) U Benzodiazepines Scrn Not Detected (NotDetected) Urine Cocaine Screen Not Detected (NotDetected) U Marijuana (THC) Screen Not Detected (NotDetected) Serum Alcohol mg/dL 01/16/18 01/16/18 Range/Units 10:30 10:30 WBC 4.3 (3.8-10.6) k/uL RBC 5.00 (3.80-5.40) m/uL Hgb 15.7 (11.4-16.0) gm/dL Hct 45.5 (34.0-46.0) % MCV 90.9 D (80.0-100.0) fL MCH 31.3 (25.0-35.0) pg MCHC 34.5 (31.0-37.0) g/dL RDW 12.9 (11.5-15.5) % Plt Count 300 (150-450) k/uL Neutrophils % (Manual) 47 % Lymphocytes % (Manual) 38 % Monocytes % (Manual) 14 % Basophils % (Manual) 1 % Neutrophils # (Manual) 2.02 (1.3-7.7) k/uL Lymphocytes # (Manual) 1.63 (1.0-4.8) k/uL Monocytes # (Manual) 0.60 (0-1.0) k/uL Basophils # (Manual) 0.04 (0-0.2) k/uL Nucleated RBCs 0 (0-0) /100 WBC Manual Slide Review Performed RBC Morphology Normal Sodium 138 (137-145) mmol/L Potassium 3.9 (3.5-5.1) mmol/L Chloride 103 (98-107) mmol/L Carbon Dioxide 21 L (22-30) mmol/L Anion Gap 14 mmol/L BUN 16 (7-17) mg/dL Creatinine 0.77 (0.52-1.04) mg/dL Est GFR (CKD-EPI)AfAm >90 (>60 ml/min/1.73 sqM) Est GFR (CKD-EPI)NonAf >90 (>60 ml/min/1.73 sqM) Glucose 107 H (74-99) mg/dL Calcium 8.1 L (8.4-10.2) mg/dL Magnesium 1.8 (1.6-2.3) mg/dL Total Bilirubin 1.1 (0.2-1.3) mg/dL AST 329 H (14-36) U/L ALT 155 H (9-52) U/L Alkaline Phosphatase 119 (38-126) U/L Total Protein 7.4 (6.3-8.2) g/dL Albumin 4.1 (3.5-5.0) g/dL Amylase 107 (30-110) U/L Lipase 362 H (23-300) U/L Urine Color Urine Appearance (Clear) Urine pH (5.0-8.0) Ur Specific [place] (1.001-1.035) Urine Protein (Negative) Urine Glucose (UA) (Negative) Urine Ketones (Negative) Urine Blood (Negative) Urine Nitrite (Negative) Urine Bilirubin (Negative) Urine Urobilinogen (<2.0) mg/dL Ur Leukocyte Esterase (Negative) Urine RBC (0-5) /hpf Urine WBC (0-5) /hpf Ur Squamous Epith Cells (0-4) /hpf Amorphous Sediment (None) /hpf Urine Mucus (None) /hpf Urine HCG, Qual (Not Detectd) Urine Opiates Screen (NotDetected) Ur Oxycodone Screen (NotDetected) Urine Methadone Screen (NotDetected) Ur Propoxyphene Screen (NotDetected) Ur Barbiturates Screen (NotDetected) U Tricyclic Antidepress (NotDetected) Ur Phencyclidine Scrn (NotDetected) Ur Amphetamines Screen (NotDetected) U Methamphetamines Scrn (NotDetected) U Benzodiazepines Scrn (NotDetected) Urine Cocaine Screen (NotDetected) U Marijuana (THC) Screen (NotDetected) Serum Alcohol 236 mg/dL Disposition Clinical Impression: Alcohol intoxication, Acute vomiting Disposition: HOME SELF-CARE Instructions: Acute Nausea and Vomiting (ED), Abuse of Alcohol (ED) Is patient prescribed a controlled substance at d/c from ED?: No Referrals: None,Stated [Primary Care Provider] - 1-2 days Time of Disposition: 12:18
[2018-01-16 11:04] LABS: Amorphous Sediment,Urine Rare /hpf; Appearance,Urine Cloudy (Clear); Bilirubin,Urine Negative (Negative); Blood,Urine Large (Negative); Color,Urine Yellow; Glucose,Urine (UA) Negative (Negative); Ketones,Urine Trace (Negative); Leukocyte Esterase,Urine Negative (Negative); Mucus,Urine Occasional /hpf; Nitrite,Urine Negative (Negative); PH, Urine 5.5 (5.0-8.0); Protein,Urine 1+ (Negative); RBC,Urine 8 /hpf (0-5); Specific Gravity,Urine 1.023 (1.001-1.035); Squamous Epithelial Cell,Urine 28 /hpf (0-4); WBC,Urine 4 /hpf (0-5)
[2018-01-16 11:06] LABS: HCT 45.5 % (34.0-46.0); HGB 15.7 gm/dL (11.4-16.0); MCH 31.3 pg (25.0-35.0); MCHC 34.5 g/dL (31.0-37.0); Mean Platelet Volume 7.1; Platelet Count 300 k/uL (150-450); RDW 12.9 % (11.5-15.5); WBC 4.3 k/uL (3.8-10.6)
[2018-01-16 11:06] LABS: Amphetamine Screen,Urine Not Detected (NotDetected); Barbiturate Screen,Urine Not Detected (NotDetected); Benzodiazepines Screen,Urine Not Detected (NotDetected); Cocaine Screen,Urine Not Detected (NotDetected); Methadone Screen, Urine Not Detected (NotDetected); Opiate Screen,Urine Not Detected (NotDetected); Oxycodone Screen, Urine Not Detected (NotDetected); Phencyclidine Screen,Urine Not Detected (NotDetected); Tricyclic Antidepressant,Urine Not Detected (NotDetected); Urn Cannabinoid Scrn Not Detected (NotDetected)
[2018-01-16 11:08] LABS: MCV 90.9 fL (80.0-100.0)
[2018-01-16 11:19] LABS: Basophils # (M) 0.04 k/uL (0-0.2); Lymphocytes # (M) 1.63 k/uL (1.0-4.8); Neutrophils # (M) 2.02 k/uL (1.3-7.7); Neutrophils % (M) 47 %; Nucleated Red Blood Cells 0 /100 WBC (0-0); Total Cells Counted 100
[2018-01-16 11:25] LABS: ALT 155 U/L (9-52); AST 329 U/L (14-36); Albumin 4.1 g/dL (3.5-5.0); Alkaline Phosphatase 119 U/L (38-126); Anion Gap 14 mmol/L; Blood Urea Nitrogen 16 mg/dL (7-17); Calcium 8.1 mg/dL (8.4-10.2); Carbon Dioxide 21 mmol/L (22-30); Chloride 103 mmol/L (98-107); Glucose 107 mg/dL (74-99); Magnesium 1.8 mg/dL (1.6-2.3); Sodium 138 mmol/L (137-145); Total Bilirubin 1.1 mg/dL (0.2-1.3); Total Protein 7.4 g/dL (6.3-8.2)
[2018-01-16 11:32] LABS: Alcohol 236 mg/dL
[2018-01-16 11:35] LABS: Lipase 362 U/L (23-300)
[2018-01-16 11:37] LABS: Amylase 107 U/L (30-110); Potassium 3.9 mmol/L (3.5-5.1)
[2018-01-16 12:57] VITALS: BP 131/79; PULSE 66; RESP 16
== END 2018-01-16 12:55 | disposition home or self-care (01) ==
LOC: EC 09:54
DX: F10.120 Alcohol abuse with intoxication, uncomplicated (principal); R11.10 Vomiting, unspecified; F17.200 Nicotine dependence, unspecified, uncomplicated
CPT/HCPCS: 36415; 80053; 82150; 83690; 83735; 85025; 81001; 81025; 80306; 80320; 99284; 96374; 96361; J2405

== ENCOUNTER 2018-01-20 02:01 | Inpatient (IN) | payer BC, OTHER ==
[2018-01-20] MEDS ORDERED: SODIUM CHLORIDE 0.9% 1,000 ML IV STA (02:14)
[2018-01-20] MEDS ORDERED: LORazepam 2 MG/ML INJ IV STA (02:15)
--- NOTE | 2018-01-20 02:23 | ED ---
Overdose HPI - General Chief Complaint: Overdose Stated Complaint: overdose Time Seen by Provider: 01/20/18 02:14 Source: patient, EMS Mode of arrival: EMS Limitations: altered mental status - History of Present Illness Initial Comments: This patient is 23-year-old woman, brought by ambulance after she had taken a suspected overdose medication. It was reported that she had taken a number of different pills, and addition to drinking, as she was reportedly trying to get high. The patient is not able to give history due to appearing intoxicated. MD Complaint: accidental overdose -: hour(s) Context: Accidental Overdose: wanted to get high - Related Data Previous Rx's Medication Instructions Recorded Acetaminophen Tab [Tylenol Tab] 650 mg PO Q6H PRN #30 tablet 12/01/17 Cefuroxime Axetil [Ceftin] 500 mg PO BID #10 tab 12/01/17 Allergies Allergy/AdvReac Type Severity Reaction Status Date / Time No Known Allergies Allergy Verified 01/16/18 09:59 Review of Systems ROS Statement: Those systems with pertinent positive or pertinent negative responses have been documented in the HPI. ROS Other: All systems not noted in ROS Statement are negative. Limitations: ROS unobtainable due to patients medical condition (Altered mental status) Past Medical History Past Medical History: No Reported History Additional Past Medical History / Comment(s): hepatitis C History of Any Multi-Drug Resistant Organisms: None Reported Past Surgical History: No Surgical Hx Reported Past Anesthesia/Blood Transfusion Reactions: Unable to Obtain Additional Past Anesthesia/Blood Transfusion Reaction / Comment(s): Pt has never had general or spinal anesthesia Past Psychological History: ADD/ADHD, Anxiety Smoking Status: Current every day smoker Past Alcohol Use History: Daily Past Drug Use History: Heroin - Past Family History Mother Additional Family Medical History / Comment(s): Mother has herniated discs Father History Unknown: Yes General Exam Limitations: no limitations General appearance: alert, appears intoxicated, anxious Head exam: Present: atraumatic, normocephalic Eye exam: Present: PERRL, EOMI, nystagmus, other (Small amounts of conjunctival hemorrhage lateral to the right iris.) ENT exam: Present: mucous membranes dry, normal external ear exam Neck exam: Present: normal inspection, full ROM. Absent: tenderness, meningismus Respiratory exam: Present: normal lung sounds bilaterally. Absent: respiratory distress, wheezes, rales, rhonchi, stridor Cardiovascular Exam: Present: normal rhythm, tachycardia, normal heart sounds. Absent: systolic murmur, diastolic murmur, rubs, gallop GI/Abdominal exam: Present: soft. Absent: distended, tenderness, guarding, rebound, rigid, mass Extremities exam: Present: normal inspection, normal capillary refill. Absent: pedal edema, calf tenderness Back exam: Present: normal inspection. Absent: vertebral tenderness Neurological exam: Present: alert, altered, CN II-XII intact, other (Patient not able to cooperate with neurologic exam due to what appears to be intoxication. GCS = 13 (e=4, v=4, m=5).). Absent: motor sensory deficit Psychiatric exam: Present: agitated Skin exam: Present: warm, dry, intact, normal color. Absent: rash Course Vital Signs 01/20/18 01/20/18 01/20/18 02:03 03:48 05:42 Temperature 98.6 F Pulse Rate 137 H 125 H 130 H Respiratory 17 17 17 Rate Blood Pressure 127/76 148/67 160/66 O2 Sat by Pulse 96 98 96 Oximetry 01/20/18 01/20/18 06:27 07:36 Temperature Pulse Rate 114 H 115 H Respiratory 17 20 Rate Blood Pressure 164/76 143/67 O2 Sat by Pulse 97 100 Oximetry Medical Decision Making - Medical Decision Making On arrival, the patient is attempting to get out of bed and is representing if fall risk. Patient is given dose of Ativan to help calm her, after this she did become more somnolent. She'll require admission for monitoring. She does continue to protect her airway. - Lab Data Result diagrams: 01/20/18 02:08 01/20/18 02:08 Lab Results 01/20/18 01/20/18 01/20/18 Range/Units 02:08 02:08 02:08 WBC 7.2 (3.8-10.6) k/uL RBC 4.56 (3.80-5.40) m/uL Hgb 14.4 (11.4-16.0) gm/dL Hct 42.5 (34.0-46.0) % MCV 93.2 (80.0-100.0) fL MCH 31.4 (25.0-35.0) pg MCHC 33.7 (31.0-37.0) g/dL RDW 13.0 (11.5-15.5) % Plt Count 173 (150-450) k/uL Neutrophils % 38 % Lymphocytes % 48 % Monocytes % 6 % Eosinophils % 2 % Basophils % 1 % Neutrophils # 2.8 (1.3-7.7) k/uL Lymphocytes # 3.5 (1.0-4.8) k/uL Monocytes # 0.5 (0-1.0) k/uL Eosinophils # 0.2 (0-0.7) k/uL Basophils # 0.0 (0-0.2) k/uL Sodium 145 (137-145) mmol/L Potassium 3.4 L (3.5-5.1) mmol/L Chloride 114 H (98-107) mmol/L Carbon Dioxide 15 L (22-30) mmol/L Anion Gap 16 mmol/L BUN 7 (7-17) mg/dL Creatinine 0.70 (0.52-1.04) mg/dL Est GFR (CKD-EPI)AfAm >90 (>60 ml/min/1.73 sqM) Est GFR (CKD-EPI)NonAf >90 (>60 ml/min/1.73 sqM) Glucose 137 H (74-99) mg/dL Lactic Ac Sepsis Rflx Plasma Lactic Acid Giovanni (0.7-2.0) mmol/L Calcium 8.8 (8.4-10.2) mg/dL Total Bilirubin 0.9 (0.2-1.3) mg/dL AST 136 H (14-36) U/L ALT 117 H (9-52) U/L Alkaline Phosphatase 169 H (38-126) U/L Troponin I <0.012 (0.000-0.034) ng/mL Total Protein 7.3 (6.3-8.2) g/dL Albumin 4.1 (3.5-5.0) g/dL Salicylates <1.0 mg/dL Acetaminophen <10.0 ug/mL Primrose <0.2 mmol/L Serum Alcohol 359 mg/dL 01/20/18 01/20/18 Range/Units 02:08 03:07 WBC (3.8-10.6) k/uL RBC (3.80-5.40) m/uL Hgb (11.4-16.0) gm/dL Hct (34.0-46.0) % MCV (80.0-100.0) fL MCH (25.0-35.0) pg MCHC (31.0-37.0) g/dL RDW (11.5-15.5) % Plt Count (150-450) k/uL Neutrophils % % Lymphocytes % % Monocytes % % Eosinophils % % Basophils % % Neutrophils # (1.3-7.7) k/uL Lymphocytes # (1.0-4.8) k/uL Monocytes # (0-1.0) k/uL Eosinophils # (0-0.7) k/uL Basophils # (0-0.2) k/uL Sodium (137-145) mmol/L Potassium (3.5-5.1) mmol/L Chloride (98-107) mmol/L Carbon Dioxide (22-30) mmol/L Anion Gap mmol/L BUN (7-17) mg/dL Creatinine (0.52-1.04) mg/dL Est GFR (CKD-EPI)AfAm (>60 ml/min/1.73 sqM) Est GFR (CKD-EPI)NonAf (>60 ml/min/1.73 sqM) Glucose (74-99) mg/dL Lactic Ac Sepsis Rflx Y Plasma Lactic Acid Giovanni 2.1 H* (0.7-2.0) mmol/L Calcium (8.4-10.2) mg/dL Total Bilirubin (0.2-1.3) mg/dL AST (14-36) U/L ALT (9-52) U/L Alkaline Phosphatase (38-126) U/L Troponin I (0.000-0.034) ng/mL Total Protein (6.3-8.2) g/dL Albumin (3.5-5.0) g/dL Salicylates mg/dL Acetaminophen ug/mL Primrose mmol/L Serum Alcohol mg/dL - EKG Data -: EKG Interpreted by Me EKG shows normal: sinus rhythm, axis (Normal), intervals (Normal), ST-T waves ( Normal) Rate: tachycardia (Rate approximately 149 bpm) Interpretation: other ( possible old inferior infarct. No old ECG for comparison.) Disposition Clinical Impression: Alcohol intoxication, Altered mental status Disposition: ADMITTED IP TO THIS HOSP Condition: Serious
[2018-01-20 02:43] LABS: Basophils % (A) 1 %; Eosinophils # (A) 0.2 k/uL (0-0.7); Eosinophils % (A) 2 %; HCT 42.5 % (34.0-46.0); HGB 14.4 gm/dL (11.4-16.0); Lymphocytes # (A) 3.5 k/uL (1.0-4.8); Lymphocytes % (A) 48 %; MCH 31.4 pg (25.0-35.0); MCHC 33.7 g/dL (31.0-37.0); MCV 93.2 fL (80.0-100.0); Monocytes # (A) 0.5 k/uL (0-1.0); Monocytes % (A) 6 %; Neutrophils # (A) 2.8 k/uL (1.3-7.7); Neutrophils % (A) 38 %; Platelet Count 173 k/uL (150-450); RBC 4.56 m/uL (3.80-5.40); WBC 7.2 k/uL (3.8-10.6)
--- NOTE | 2018-01-20 02:45 | CT ---
EXAMINATION TYPE: CT brain wo con DATE OF EXAM: 01/20/2018 COMPARISON: None HISTORY: overdose red eyes CT DLP: 1116.00 mGycm. Automated Exposure Control for Dose Reduction was Utilized. TECHNIQUE: CT scan of the head is performed without contrast. FINDINGS: Ventricles of normal size. There is no mass effect nor midline shift. There is no sign of i ntracranial hemorrhage. The calvarium is intact. IMPRESSION: Negative CT scan of the brain.
--- NOTE | 2018-01-20 02:48 | XR ---
EXAMINATION TYPE: XR chest 1V portable DATE OF EXAM: 01/20/2018 COMPARISON: 11/30/2017 HISTORY: Overdose. Blood in the eyes. TECHNIQUE: Single frontal view of the chest is obtained. FINDINGS: Heart and mediastinum are normal. Lungs are clear. Diaphragm is normal. There is poor insp iration. There are chest leads. IMPRESSION: No active cardiopulmonary disease. Inspiration is less than old exam.
[2018-01-20 02:54] LABS: ALT 117 U/L (9-52); AST 136 U/L (14-36); Acetaminophen <10.0 ug/mL; Albumin 4.1 g/dL (3.5-5.0); Alkaline Phosphatase 169 U/L (38-126); Anion Gap 16 mmol/L; Blood Urea Nitrogen 7 mg/dL (7-17); Calcium 8.8 mg/dL (8.4-10.2); Carbon Dioxide 15 mmol/L (22-30); Chloride 114 mmol/L (98-107); Glucose 137 mg/dL (74-99); Lithium <0.2 mmol/L; Potassium 3.4 mmol/L (3.5-5.1); Salicylate <1.0 mg/dL; Sodium 145 mmol/L (137-145); Total Bilirubin 0.9 mg/dL (0.2-1.3); Total Protein 7.3 g/dL (6.3-8.2)
[2018-01-20 03:07] LABS: Alcohol 359 mg/dL
[2018-01-20] MEDS ORDERED: SODIUM CHLORIDE 0.9% 2,000 ML IV ONE (05:15)
[2018-01-20] MEDS ORDERED: ACETAMINOPHEN SUPPOSITORY 650 MG SUPP RECTAL PRN (05:59)
[2018-01-20] MEDS ORDERED: NALOXONE 0.4 MG/ML 1 ML VIAL IV PRN (05:59)
[2018-01-20] MEDS: SODIUM CHLORIDE 0.9% 1,000 ML IV SCH ×2 (07:46→14:05)
[2018-01-20 07:51] LABS: Amphetamine Screen,Urine Not Detected (NotDetected); Barbiturate Screen,Urine Not Detected (NotDetected); Benzodiazepines Screen,Urine Not Detected (NotDetected); Cocaine Screen,Urine Not Detected (NotDetected); Methadone Screen, Urine Not Detected (NotDetected); Opiate Screen,Urine Not Detected (NotDetected); Oxycodone Screen, Urine Not Detected (NotDetected); Phencyclidine Screen,Urine Not Detected (NotDetected); Tricyclic Antidepressant,Urine Not Detected (NotDetected); Urn Cannabinoid Scrn Not Detected (NotDetected)
[2018-01-20] MEDS: FAMOTIDINE 20 MG/2 ML VIAL IV SCH ×2 (09:06→20:40)
--- NOTE | 2018-01-20 09:58 | P.CNPUL ---
History of Present Illness Consult date: 01/20/18 Reason for consult: other Chief complaint: Multi drug overdose History of present illness: Pulmonary consult dated 01/20/2018 23-year-old female brought into the emergency room by EMS with apparent overdose. She had very high alcohol level on admission to the emergency room and apparently took an unknown quantity of Seroquel and Respidal. According to the emergency room physician, the patient was arousable and could protect her airway and for that reason she was not intubated. The patient could not give any history. This apparently was a "accidental overdose". The patient in the emergency room was not really able to give us any history. She was quite lethargic somnolent even stuporous. On stimulation, she would arouse a bit but really could not give any additional history. Additional history noted in the EMR is that of hepatitis C. She has no ALLERGIES. I'm not sure that he was on any medications. There is mention in the medical record that the patient used heroin in the past and has a history of ADD/ADHD and anxiety Review of Systems We could not obtain a review of systems on her as a patient was very lethargic/ somnolent/stuporous. ROS unobtainable: due to mental status Past Medical History Past Medical History: No Reported History Additional Past Medical History / Comment(s): hepatitis C History of Any Multi-Drug Resistant Organisms: None Reported Past Surgical History: No Surgical Hx Reported Past Anesthesia/Blood Transfusion Reactions: Unable to Obtain Additional Past Anesthesia/Blood Transfusion Reaction / Comment(s): Pt has never had general or spinal anesthesia Past Psychological History: ADD/ADHD, Anxiety Smoking Status: Current every day smoker Past Alcohol Use History: Daily Past Drug Use History: Heroin - Past Family History Mother Additional Family Medical History / Comment(s): Mother has herniated discs Father History Unknown: Yes Medications and Allergies Home Medications Medication Instructions Recorded Confirmed Type Acetaminophen Tab [Tylenol Tab] 650 mg PO Q6H PRN #30 tablet 12/01/17 12/03/17 Rx Cefuroxime Axetil [Ceftin] 500 mg PO BID #10 tab 12/01/17 12/03/17 Rx Allergies Allergy/AdvReac Type Severity Reaction Status Date / Time No Known Allergies Allergy Verified 01/16/18 09:59 Physical Exam Osteopathic Statement: *. No significant issues noted on an osteopathic structural exam other than those noted in the History and Physical/Consult. Vitals: Vital Signs Temp Pulse Resp BP Pulse Ox 01/20/18 08:37 97 18 140/74 99 01/20/18 07:36 115 H 20 143/67 100 01/20/18 06:27 114 H 17 164/76 97 01/20/18 05:42 130 H 17 160/66 96 01/20/18 03:48 125 H 17 148/67 98 01/20/18 02:03 98.6 F 137 H 17 127/76 96 Intake and Output 01/19/18 01/20/18 01/20/18 22:59 06:59 14:59 Output Total 550 Balance -550 Output: Urine 550 Uretheral (Knowles) 550 Other: Weight 86.183 kg Progress, arouses a bit, can give no history. Nonverbal. HEENT examination is grossly unremarkable. Mucous membranes are moist. No oral lesions. Neck supple. Full range of motion. No adenopathy thyromegaly or neck vein distention. Cardiovascular examination reveals regular rhythm rate. S1-S2 normal. No S3 or S4. No discernible murmur noted. Lungs reveal mostly clear breath sounds. Her sounds are equal bilaterally. Occasional mild rhonchi. Abdomen soft bowel sounds are heard. No masses or tenderness. Extremities are intact. No cyanosis clubbing or edema. Skin is without rash or lesion. Neurologic examination could not be adequately assessed. Results - Laboratory Findings CBC and BMP: 01/20/18 02:08 01/20/18 02:08 Abnormal lab findings: Abnormal Labs 01/20/18 01/20/18 02:08 02:08 Potassium 3.4 L Chloride 114 H Carbon Dioxide 15 L Glucose 137 H Plasma Lactic Acid Giovanni 2.1 H* AST 136 H ALT 117 H Alkaline Phosphatase 169 H - Diagnostic Findings Chest x-ray: report reviewed (Chest x-ray labs and medications are all reviewed. ), image reviewed Assessment and Plan Assessment: Assessment Accidental overdose according to the medical record with alcohol Seroquel and Respidal. History of IV drug abuse/heroin History of ADD/ADHD and anxiety History of hepatitis C Plan: Plan dated 01/20/2018 The patient will be admitted to the intensive care unit for further monitoring. Her mental status is still very poor. She is very somnolent/lethargic/ stuporous. Head of bed should be elevated all times to prevent aspiration. CBC is normal. Sodium 145, potassium 3.4, chlorides 114, and carbon dioxide 15. Anion gap initially was 16 with a BUN and creatinine are 7 and 0.7. Plasma lactic acid was 2.1 in dropped down to 1.3. Liver function tests were elevated with an AST 136 and ALT of 117. Drug screen was negative. Serum alcohol was 359. Brain CT and chest x-ray were negative. The patient will be followed closely in the intensive care unit. Additional recommendations and suggestions are forthcoming. Time with Patient: Greater than 30
[2018-01-20] MEDS ORDERED: Potassium Replacement Protocol 1 EACH MISC MISCELLANE PRN ×2 (16:08→17:01)
[2018-01-20] MEDS ORDERED: Magnesium Replacement Protocol 1 EACH MISC MISCELLANE PRN ×2 (16:09→19:18)
[2018-01-20] MEDS ORDERED: LORazepam 2 MG/ML INJ IV PRN ×3 (16:11)
[2018-01-20] MEDS: POTASSIUM CHLORIDE ER 20 MEQ TAB.ER PO SCH ×2 (17:43→18:54)
[2018-01-20] MEDS: 1: MVI, ADULT NO.4 WITH VIT K 10 ML, THIAMINE 100 MG, FOLIC ACID 1 MG in SODIUM CHLORIDE IV SCH ×4 (17:43)
[2018-01-20 18:54] VITALS: BMI 35.9
[2018-01-20] MEDS: MAGNESIUM SULFATE-D5W PMX 1 GM in DEXTROSE/WATER 1 100ML.BAG IVPB SCH ×3 (19:44→21:59)
[2018-01-20] MEDS: METOPROLOL TARTRATE 25 MG TAB PO SCH (21:58)
--- NOTE | 2018-01-20 22:59 | P.HPIM ---
History of Present Illness H&P Date: 01/20/18 Chief Complaint: Altered mental status Patient is a 23-year-old female with a known history of hepatitis C, nicotine addiction and ADD/ADHD was brought to ER where EMS due to possible overdose. Patient is unable to provide any history at this time and is very lethargic. Patient was also alcohol intoxicated on admission and aberrantly took unknown quantity of Seroquel and Risperdal. Currently patient is maintaining airway and is saturating well on nasal cannula. Hemodynamically stable. Alcohol level on admission a 59 Patient was found have elevated AST and ALP and alk phos Lactic acid slightly elevated on admission. UDS negative Patient is afebrile but tachycardic. EKG showed sinus tachycardia. CT head negative Chest x-ray showed no acute cardio pulmonary process. Review of Systems Review of systems could not be obtained from the patient. Past Medical History Past Medical History: No Reported History Additional Past Medical History / Comment(s): hepatitis C History of Any Multi-Drug Resistant Organisms: None Reported Past Surgical History: No Surgical Hx Reported Past Anesthesia/Blood Transfusion Reactions: Unable to Obtain Additional Past Anesthesia/Blood Transfusion Reaction / Comment(s): Pt has never had general or spinal anesthesia Past Psychological History: ADD/ADHD, Anxiety Smoking Status: Current every day smoker Past Alcohol Use History: Daily Past Drug Use History: Heroin - Past Family History Mother Additional Family Medical History / Comment(s): Mother has herniated discs Father History Unknown: Yes Medications and Allergies Home Medications Medication Instructions Recorded Confirmed Type No Known Home Medications 01/20/18 01/20/18 History Allergies Allergy/AdvReac Type Severity Reaction Status Date / Time No Known Allergies Allergy Verified 01/20/18 10:48 Physical Exam Vitals: Vital Signs Temp Pulse Resp BP Pulse Ox 01/20/18 13:24 98.8 F 100 20 179/82 98 01/20/18 11:20 89 18 143/78 99 01/20/18 10:00 93 18 147/79 99 01/20/18 08:37 97 18 140/74 99 01/20/18 07:36 115 H 20 143/67 100 01/20/18 06:27 114 H 17 164/76 97 01/20/18 05:42 130 H 17 160/66 96 01/20/18 03:48 125 H 17 148/67 98 01/20/18 02:03 98.6 F 137 H 17 127/76 96 Intake and Output 01/19/18 01/20/18 01/20/18 22:59 06:59 14:59 Output Total 550 Balance -550 Output: Urine 550 Uretheral (Knowles) 550 Other: Weight 86.183 kg PHYSICAL EXAMINATION: Patient is lying in the bed comfortably, no acute distress, patient is very lethargic only arousable to painful stimuli.. HEENT: Normocephalic. Neck is supple. Pupils reactive. Nostrils clear. Oral cavity is moist. Ears reveal no drainage. Neck reveals no JVD, carotid bruits, or thyromegaly. CHEST EXAMINATION: Trachea is central. Symmetrical expansion. Bibasilar diminished air entry. CARDIAC: Normal S1, S2 with no gallops. No murmurs . Sinus tachycardia ABDOMEN: Soft. Bowel sounds normal. No organomegaly. No abdominal bruits. Extremities: reveal no edema. No clubbing or cyanosis Neurologically patient is lethargic and somnolent. No gross focal deficits noted Skin: No rash or skin lesions. Psychiatric: Could not be assessed Musculoskeletal: No joint swelling or deformity. Normal range of motion. Results CBC & Chem 7: 01/20/18 02:08 01/20/18 02:08 Labs: Abnormal Lab Results - Last 24 Hours (Table) 01/20/18 01/20/18 Range/Units 02:08 02:08 Potassium 3.4 L (3.5-5.1) mmol/L Chloride 114 H (98-107) mmol/L Carbon Dioxide 15 L (22-30) mmol/L Glucose 137 H (74-99) mg/dL Plasma Lactic Acid Giovanni 2.1 H* (0.7-2.0) mmol/L AST 136 H (14-36) U/L ALT 117 H (9-52) U/L Alkaline Phosphatase 169 H (38-126) U/L Thrombosis Risk Factor Assmnt - DVT/VTE Prophylaxis DVT/VTE Prophylaxis: Pharmacologic Prophylaxis ordered Assessment and Plan Assessment: Acute alcohol intoxication and accidental overdose of Seroquel and Risperdal History of IV drug abuse with groin. UDS negative to now. ADD/ADHD and anxiety Hepatitis C Hypokalemic and hypomagnesemia Transaminitis possible alcohol Hepatitis Lactic acidosis on admission Currently everyday smoker DVT prophylaxis with heparin subcu Plan: Patient will be continued on IV hydration. Replace electrolyte and supportive therapy and close follow-up. Pulmonary is on board. Continue the current management and further recommendations based on the clinical course. GI and DVT prophylaxis. Monitor for alcohol withdrawal symptoms. Time with Patient: Greater than 30
[2018-01-20] MEDS: HEPARIN SODIUM,PORCINE 5,000 UNIT/ML 1 ML VIAL SQ SCH (23:31)
[2018-01-21] MEDS: 1: MVI, ADULT NO.4 WITH VIT K 10 ML, THIAMINE 100 MG, FOLIC ACID 1 MG in SODIUM CHLORIDE IV SCH ×8 (02:27→12:08)
[2018-01-21] MEDS: SODIUM CHLORIDE 0.9% 1,000 ML IV SCH ×3 (02:27→16:04)
[2018-01-21 03:54] VITALS: RESP 17
[2018-01-21 06:21] LABS: Basophils % (A) 0 %; Eosinophils # (A) 0.1 k/uL (0-0.7); Eosinophils % (A) 1 %; HCT 35.5 % (34.0-46.0); HGB 12.1 gm/dL (11.4-16.0); Lymphocytes # (A) 1.7 k/uL (1.0-4.8); Lymphocytes % (A) 14 %; MCH 31.9 pg (25.0-35.0); MCHC 33.9 g/dL (31.0-37.0); MCV 94.1 fL (80.0-100.0); Mean Platelet Volume 8.8; Monocytes # (A) 0.4 k/uL (0-1.0); Monocytes % (A) 4 %; Neutrophils # (A) 9.6 k/uL (1.3-7.7); Neutrophils % (A) 80 %; Platelet Count 105 k/uL (150-450); RBC 3.78 m/uL (3.80-5.40); RDW 13.4 % (11.5-15.5)
[2018-01-21 06:31] LABS: ALT 150 U/L (9-52); AST 217 U/L (14-36); Albumin 2.8 g/dL (3.5-5.0); Alkaline Phosphatase 137 U/L (38-126); Anion Gap 6 mmol/L; Blood Urea Nitrogen 6 mg/dL (7-17); Calcium 7.9 mg/dL (8.4-10.2); Carbon Dioxide 23 mmol/L (22-30); Chloride 108 mmol/L (98-107); Glucose 88 mg/dL (74-99); Magnesium 2.1 mg/dL (1.6-2.3); Potassium 3.8 mmol/L (3.5-5.1); Sodium 137 mmol/L (137-145); Total Bilirubin 1.3 mg/dL (0.2-1.3); Total Protein 5.6 g/dL (6.3-8.2)
[2018-01-21] MEDS: FAMOTIDINE 20 MG/2 ML VIAL IV SCH (09:36)
[2018-01-21] MEDS: METOPROLOL TARTRATE 25 MG TAB PO SCH (09:36)
[2018-01-21] MEDS: HEPARIN SODIUM,PORCINE 5,000 UNIT/ML 1 ML VIAL SQ SCH ×2 (09:36→16:04)
--- NOTE | 2018-01-21 12:39 | P.PN ---
Subjective Progress Note Date: 01/21/18 Principal diagnosis: Accidental overdose Progress note dated 01/21/2018 23-year-old female brought to the emergency room with an overdose of excess alcohol Seroquel and Risperdal. The patient initially was very stuporous and very sleepy, and we thought we might have to intubate her in initially to the intensive care unit but she rapidly improved and rather than go to the ICU, she was eventually transferred to the [facility] unit. The patient is doing well today. I gave her a stress steroid talking to about the importance of being careful with the use of these chemicals. She understands. In addition, she apparently has a history of ADD/ADHD, anxiety, the previous use of heroin and hepatitis C. She has no complaints today and is fully awake and alert. Her primary doctor is a family doctor here in [facility]. Objective - Vital Signs Vital signs: Vital Signs Temp 98.5 F 01/21/18 08:35 Pulse 94 01/21/18 08:35 Resp 17 01/21/18 08:35 BP 129/81 01/21/18 08:35 Pulse Ox 95 01/21/18 08:35 Intake & Output 01/20/18 01/21/18 01/21/18 18:59 06:59 18:59 Intake Total 40 2811.2 250 Output Total 1350 300 Balance -1310 2511.2 250 Weight 86.183 kg 101.3 kg Intake: IV 10 Invasive Line 1 10 Intake, IV Titration 2311.2 Amount Magnesium Sulfate-D5w Pmx 300 1 gm In Dextrose/Water 1 100ml.bag @ 100 mls/hr IVPB Q1H BREANNA Rx#: [id number] Mvi, Adult No.4 with Vit 2011.2 K 10 ml Thiamine 100 mg Folic Acid 1 mg In Sodium Chloride 0.9% 1,000 ml @ 100 mls/hr IV .BY DURATION BREANNA Rx#: [id number] Oral 40 500 240 Output: Urine 1350 300 Uretheral (Knowles) 550 Other: Voiding Method Indwelling Catheter Indwelling Catheter Indwelling Catheter # Voids 1 - Exam No acute distress, oriented 3. HEENT examination is grossly unremarkable. Mucous membranes are moist. No oral lesions. Neck supple. Full range of motion. No adenopathy thyromegaly or neck vein distention. Cardiovascular examination reveals regular rhythm rate. S1-S2 normal. No S3 or S4. No discernible murmur noted. Lungs reveal clear breath sounds. Her sounds are equal bilaterally. No adventitious lung sounds including wheezes rhonchi or crackles. Abdomen soft bowel sounds are heard. No masses or tenderness. Extremities are intact. No cyanosis clubbing or edema. Skin is without rash or lesion. Neurologic examination is brief but nonfocal. - Labs CBC & Chem 7: 01/21/18 05:59 01/21/18 05:59 Labs: Abnormal Lab Results - Last 24 Hours (Table) 01/20/18 01/21/18 01/21/18 Range/Units 16:53 05:59 05:59 WBC 12.0 H (3.8-10.6) k/uL RBC 3.78 L (3.80-5.40) m/uL Plt Count 105 L (150-450) k/uL Neutrophils # 9.6 H (1.3-7.7) k/uL Chloride 108 H (98-107) mmol/L BUN 6 L (7-17) mg/dL Calcium 7.9 L (8.4-10.2) mg/dL Magnesium 1.2 L (1.6-2.3) mg/dL AST 217 H (14-36) U/L ALT 150 H (9-52) U/L Alkaline Phosphatase 137 H (38-126) U/L Total Protein 5.6 L (6.3-8.2) g/dL Albumin 2.8 L (3.5-5.0) g/dL Assessment and Plan Assessment: Assessment Accidental overdose according to the medical record with alcohol Seroquel and Respidal. History of IV drug abuse/heroin History of ADD/ADHD and anxiety History of hepatitis C Plan: Plan dated 01/20/2018 The patient will be admitted to the intensive care unit for further monitoring. Her mental status is still very poor. She is very somnolent/lethargic/ stuporous. Head of bed should be elevated all times to prevent aspiration. CBC is normal. Sodium 145, potassium 3.4, chlorides 114, and carbon dioxide 15. Anion gap initially was 16 with a BUN and creatinine are 7 and 0.7. Plasma lactic acid was 2.1 in dropped down to 1.3. Liver function tests were elevated with an AST 136 and ALT of 117. Drug screen was negative. Serum alcohol was 359. Brain CT and chest x-ray were negative. The patient will be followed closely in the intensive care unit. Additional recommendations and suggestions are forthcoming. Plan dated 01/21/2018 The patient is doing well and could be discharged home. Today we talk about the importance of being very careful with the use of these medications and drugs. Her alcohol level on admission was 359. She is a relatively small gal and could have significant deleterious effects from the use of these chemicals and drugs. The patient from our perspective could be discharged home. No additional recommendations are made. We'll follow as needed. White count 12 hemoglobin 12.1 hematocrit 35.5 and platelet count 105,000. Sodium 137 potassium 3.8 chlorides 108 CO2 23 BUN 6 creatinine 0.65. Time with Patient: Less than 30
[2018-01-21 13:31] VITALS: TEMP 98.6
[2018-01-21 15:59] VITALS: BP 118/65; PULSE 80
== END 2018-01-21 17:16 | disposition home or self-care (01) | DRG 918 ==
LOC: EC 02:01 → 6ICU 06:01 → 6SEL 10:16
PROVIDERS: ADMIT Internal Medicine; ATTEND Internal Medicine
DX: T43.591A Poisoning by other antipsychotics and neuroleptics, accidental (unintentional), initial encounter (principal); E87.2 Acidosis; B19.20 Unspecified viral hepatitis C without hepatic coma; E83.42 Hypomagnesemia; E87.6 Hypokalemia; F10.129 Alcohol abuse with intoxication, unspecified; Y90.2 Blood alcohol level of 40-59 mg/100 ml; F17.200 Nicotine dependence, unspecified, uncomplicated; F41.9 Anxiety disorder, unspecified; F90.9 Attention-deficit hyperactivity disorder, unspecified type; F11.11 Opioid abuse, in remission; R40.1 Stupor; R40.0 Somnolence; K70.10 Alcoholic hepatitis without ascites
CPT/HCPCS: 36415; 51702; 70450; 71045; 80053; 80178; 80306; 80320; 81025; 83520; 83605; 83735; 84484; 85025; 93005; 96360; 96361; 96374; 96375; 99285

== ENCOUNTER 2018-11-10 02:53 | Emergency (ER) | payer BC, OTHER ==
[2018-11-10] MEDS ORDERED: IBUPROFEN 800 MG TAB PO STA ×2 (03:46→04:06)
[2018-11-10] MEDS ORDERED: SULFAMETHOX-TMP 800-160MG 1 EACH TAB PO STA (03:46)
[2018-11-10] MEDS ORDERED: LORazepam 1 MG TAB PO STA (03:46)
[2018-11-10] MEDS ORDERED: DIPH,PERTUS(ACELL)TETVAC-LF 0.5 ML VIAL IM ONE (03:47)
--- NOTE | 2018-11-10 04:49 | ED ---
Upper Extremity HPI - General Chief Complaint: Extremity Injury, Upper Stated Complaint: Arm pain Time Seen by Provider: 11/10/18 03:36 Source: patient Mode of arrival: ambulatory Limitations: no limitations - History of Present Illness Initial Comments: This patient is 23-year-old woman who presents to be evaluated with concerns about IV injection sites. The patient states that she had attempted to inject amphetamine to the bilateral antecubital fossa. The patient had initially stated that it was a number of hours ago. She has concerns that she may be developing swelling. Patient stated that she cannot recall when her last tetanus shot was. Complaint: Injury to:: forearm -: hour(s) Other Extremity Injury: Forearm: Left, Right Handedness: right Place: home Improves With: none Worsens With: none Associated Symptoms: denies other symptoms - Related Data Previous Rx's Medication Instructions Recorded Emtricitabine/Tenofovir (Tdf) 1 tab PO DAILY #28 tab 11/10/18 [Truvada 200 mg-300 mg Tablet] Sulfamethox-Tmp 800-160Mg [Bactrim 1 each PO Q12HR #14 tab 11/10/18 Ds] Allergies Allergy/AdvReac Type Severity Reaction Status Date / Time No Known Allergies Allergy Verified 11/10/18 03:03 Review of Systems ROS Statement: Those systems with pertinent positive or pertinent negative responses have been documented in the HPI. ROS Other: All systems not noted in ROS Statement are negative. Constitutional: Denies: fever, chills Respiratory: Denies: cough, dyspnea Cardiovascular: Denies: chest pain, palpitations Skin: Reports: as per HPI, lesions. Denies: rash Neurological: Denies: weakness, numbness, paresthesias Hematological/Lymphatic: Denies: easy bleeding Past Medical History Past Medical History: No Reported History Additional Past Medical History / Comment(s): hepatitis C History of Any Multi-Drug Resistant Organisms: None Reported Past Surgical History: No Surgical Hx Reported Past Anesthesia/Blood Transfusion Reactions: Unable to Obtain Additional Past Anesthesia/Blood Transfusion Reaction / Comment(s): Pt has never had general or spinal anesthesia Past Psychological History: ADD/ADHD, Anxiety Smoking Status: Current every day smoker Past Alcohol Use History: Daily Past Drug Use History: Heroin, Methamphetamine - Past Family History Mother History Unknown: Yes Additional Family Medical History / Comment(s): Mother has herniated discs Father History Unknown: Yes Additional Family Medical History / Comment(s): unsure- father "not around" General Exam Limitations: no limitations General appearance: alert, in no apparent distress, anxious Head exam: Present: atraumatic, normocephalic Respiratory exam: Present: normal lung sounds bilaterally. Absent: respiratory distress, wheezes, rales, rhonchi, stridor Cardiovascular Exam: Present: regular rate, normal rhythm, normal heart sounds. Absent: systolic murmur, diastolic murmur, rubs, gallop Neurological exam: Present: alert. Absent: motor sensory deficit Skin exam: Present: warm, dry, intact, normal color, other (Patient has 4 clusters of puncture wounds, 2 to each antecubital fossa. There is an approximately half to 1 cm, palpable fluid collection underlying 1 which is possible hematoma versus early abscess. There is no overlying warmth or erythem a indicative of infection.) Course Vital Signs 11/10/18 11/10/18 11/10/18 02:56 03:30 05:30 Temperature 98.7 F 98 F Pulse Rate 113 H 91 126 H Respiratory 20 26 H 19 Rate Blood Pressure 107/70 105/65 97/81 O2 Sat by Pulse 98 96 98 Oximetry Medical Decision Making - Medical Decision Making Patient is 23-year-old woman with 4 areas that are clusters of injection sites, 2 at each antecubital fossa. At one of the sites there is a small fluid collection but it has no signs of active infection. I did discuss with patient appropriate wound care as well as appropriate follow-up. Will give prescription to start should the patient begin having any warmth or erythema, or fever. Discussed appropriate further care and follow-up. Disposition Clinical Impression: Wound infection Disposition: HOME SELF-CARE Condition: Fair Instructions (If sedation given, give patient instructions): Wound Infection (DC) Prescriptions: Sulfamethox-Tmp 800-160Mg [Bactrim Ds] 1 each PO Q12HR #14 tab Emtricitabine/Tenofovir (Tdf) [Truvada 200 mg-300 mg Tablet] 1 tab PO DAILY #28 tab Is patient prescribed a controlled substance at d/c from ED?: No Referrals: Jose E Hernández MD [Primary Care Provider] - 1-2 days
[2018-11-10] MEDS ORDERED: FAMOTIDINE 20 MG TAB PO STA (05:20)
[2018-11-10 05:31] VITALS: BP 97/81; PULSE 126; RESP 19; TEMP 98
[2018-11-10 09:34] LABS: Hepatitis A AB IgM Index 0.01; Hepatitis A Antibody IgM NEGATIVE
[2018-11-10 17:43] LABS: HIV 1 AB Non-Reactive (Non-Reactive); HIV AB P24 Non-Reactive (Non-Reactive); HIV P24 AG Non-Reactive (Non-Reactive)
[2018-11-10 20:08] LABS: Hepatitis B Core IgM Non-Reactive (Non-Reactive)
== END 2018-11-10 06:10 | disposition home or self-care (01) ==
LOC: EC 02:53
DX: T80.29XA Infection following other infusion, transfusion and therapeutic injection, initial encounter (principal); F17.200 Nicotine dependence, unspecified, uncomplicated; Z23 Encounter for immunization; Z86.19 Personal history of other infectious and parasitic diseases; Y84.8 Other medical procedures as the cause of abnormal reaction of the patient, or of later complication, without mention of misadventure at the time of the procedure; Z53.8 Procedure and treatment not carried out for other reasons
CPT/HCPCS: 36415; 80074; 87390; 90471; 90715; 99283

== ENCOUNTER 2019-01-28 15:39 | Emergency (ER) | payer BC, OTHER ==
[2019-01-28 15:57] VITALS: RESP 18
--- NOTE | 2019-01-28 15:58 | ED ---
General Adult HPI - General Stated complaint: overdose Time Seen by Provider: 01/28/19 15:39 Source: RN notes reviewed - History of Present Illness Initial comments: This is a 24-year-old female who presents emergency department after having been found unresponsive by EMS. Patient received multiple doses of Narcan and became alert and oriented 3. When I interviewed the patient she did not want to be seen she went over and wanted us to let her go immediately. Patient states she felt fine and she just wanted to go home and be with her . Patient states she did do heroin and has been trying to cut down recently. Patient denies any suicidal homicidal ideations. Patient denies any physical complaints today. Patient denies headache patient denies numbness weakness. Patient denies chest pain palpitations difficulty breathing or shortness of breath. Patient denies any nausea vomiting diarrhea. Patient denies any recent fever chills or cough. - Related Data Previous Rx's Medication Instructions Recorded Emtricitabine/Tenofovir (Tdf) 1 tab PO DAILY #28 tab 11/10/18 [Truvada 200 mg-300 mg Tablet] Sulfamethox-Tmp 800-160Mg [Bactrim 1 each PO Q12HR #14 tab 11/10/18 Ds] Allergies Allergy/AdvReac Type Severity Reaction Status Date / Time No Known Allergies Allergy Verified 11/10/18 03:03 Review of Systems ROS Statement: Those systems with pertinent positive or pertinent negative responses have been documented in the HPI. ROS Other: All systems not noted in ROS Statement are negative. Past Medical History Past Medical History: No Reported History Additional Past Medical History / Comment(s): hepatitis C History of Any Multi-Drug Resistant Organisms: None Reported Past Surgical History: No Surgical Hx Reported Past Anesthesia/Blood Transfusion Reactions: Unable to Obtain Additional Past Anesthesia/Blood Transfusion Reaction / Comment(s): Pt has never had general or spinal anesthesia Past Psychological History: ADD/ADHD, Anxiety Smoking Status: Current every day smoker Past Alcohol Use History: Daily Past Drug Use History: Heroin, Methamphetamine - Past Family History Mother History Unknown: Yes Additional Family Medical History / Comment(s): Mother has herniated discs Father History Unknown: Yes Additional Family Medical History / Comment(s): unsure- father "not around" General Exam - General Exam Comments Initial Comments: GENERAL: Patient is well-developed and well-nourished. Patient is nontoxic and well- hydrated and is in no acute distress. ENT: Neck is soft and supple. No significant lymphadenopathy is noted. Oropharynx is clear. Moist mucous membranes. EYES: The sclera were anicteric and conjunctiva were pink and moist. Extraocular movements were intact and pupils were equal round and reactive to light. Eyelids were unremarkable. PULMONARY: Unlabored respirations. Good breath sounds bilaterally. No audible rales rhonchi or wheezing was noted. CARDIOVASCULAR: There is a regular rate and rhythm without any murmurs gallops or rubs. ABDOMEN: Soft and nontender with normal bowel sounds. SKIN: Skin is clear with no lesions or rashes and otherwise unremarkable. NEUROLOGIC: Patient is alert and oriented x3. Cranial nerves II through XII are grossly intact. Motor and sensory are also intact. Normal speech, volume and content. Symmetrical smile. MUSCULOSKELETAL: Normal extremities with adequate strength and full range of motion. Patient has injections sites on both arms. LYMPHATICS: No significant lymphadenopathy is noted PSYCHIATRIC: Normal psychiatric evaluation. Disposition Clinical Impression: Heroin overdose Disposition: HOME SELF-CARE Instructions (If sedation given, give patient instructions): Narcotic Use Disorder (ED) Is patient prescribed a controlled substance at d/c from ED?: No Referrals: None,Stated [Primary Care Provider] - 1-2 days Time of Disposition: 15:56
[2019-01-28 16:21] VITALS: BP 102/79; PULSE 120; TEMP 97.8
== END 2019-01-28 16:20 | disposition home or self-care (01) ==
LOC: EC 15:39
DX: T40.1X1A Poisoning by heroin, accidental (unintentional), initial encounter (principal); F17.200 Nicotine dependence, unspecified, uncomplicated
CPT/HCPCS: 99284

== ENCOUNTER 2019-02-10 21:44 | Emergency (ER) | payer BC, OTHER ==
[2019-02-10 21:59] VITALS: RESP 18
[2019-02-10] MEDS: KETOROLAC 30 MG/ML 1 ML VIAL IM STA (23:31)
[2019-02-10] MEDS: cefTRIAXone 1,000 MG VIAL (IM USE) IM STA (23:35)
--- NOTE | 2019-02-10 23:45 | ED ---
General Adult HPI - General Chief complaint: Wound/Laceration Stated complaint: Abcess on arm Time Seen by Provider: 02/10/19 22:32 Source: patient Mode of arrival: ambulatory Limitations: no limitations - History of Present Illness Initial comments: Patient is 24-year-old female presenting to emergency Department with a chief complaint of infection in the arm. Patient is an IV drug user and was injecting heroin on the lateral aspect of left arm about a week ago. Patient reports she developed a "lump" near the injection site. Patient reports the lump had increased in size gradually but has significantly progressed over the last 24 hours. Patient also reports she developed chills last night. Patient denies nausea or vomiting or headaches. Patient reports she has also developed erythema that spread from the left injection site. Patient reports pain with palpation at the site. Patient has full range of motion. - Related Data Previous Rx's Medication Instructions Recorded Sulfamethox-Tmp 800-160Mg [Bactrim 1 each PO Q12HR #20 tab 02/10/19 Ds] Allergies Allergy/AdvReac Type Severity Reaction Status Date / Time No Known Allergies Allergy Verified 02/10/19 22:35 Review of Systems ROS Statement: Those systems with pertinent positive or pertinent negative responses have been documented in the HPI. ROS Other: All systems not noted in ROS Statement are negative. Past Medical History Past Medical History: No Reported History Additional Past Medical History / Comment(s): hepatitis C History of Any Multi-Drug Resistant Organisms: None Reported Past Surgical History: No Surgical Hx Reported Past Anesthesia/Blood Transfusion Reactions: Unable to Obtain Additional Past Anesthesia/Blood Transfusion Reaction / Comment(s): Pt has never had general or spinal anesthesia Past Psychological History: ADD/ADHD, Anxiety Smoking Status: Current every day smoker Past Alcohol Use History: Occasional Past Drug Use History: Heroin, Methamphetamine - Past Family History Mother History Unknown: Yes Additional Family Medical History / Comment(s): Mother has herniated discs Father History Unknown: Yes Additional Family Medical History / Comment(s): unsure- father "not around" General Exam Limitations: no limitations General appearance: alert, in no apparent distress Head exam: Present: atraumatic, normocephalic, normal inspection Eye exam: Present: normal appearance, PERRL, EOMI Pupils: Present: normal accommodation ENT exam: Present: normal exam, normal oropharynx, mucous membranes moist, TM's normal bilaterally, normal external ear exam Neck exam: Present: normal inspection, full ROM Respiratory exam: Present: normal lung sounds bilaterally Cardiovascular Exam: Present: normal rhythm, tachycardia, normal heart sounds Extremities exam: Present: full ROM, tenderness (Tenderness with palpation near the lesion.), normal capillary refill, other (+2 ulnar and radial pulses bilaterally.). Absent: normal inspection (Erythema with nondraining abscess formation in the lateral aspect of the left upper arm. Abscess measuring approximately 3 cm in diameter of induration without fluctuance. Cellulitis surrounding the abscess along with partial spread along the circumference of the left upper arm.) Back exam: Present: normal inspection, full ROM Neurological exam: Present: alert, oriented X3 Psychiatric exam: Present: normal affect, normal mood Skin exam: Present: warm, intact, normal color Course Vital Signs 02/10/19 02/11/19 21:54 00:04 Temperature 100.0 F H 100.6 F H Pulse Rate 125 H 121 H Respiratory 18 18 Rate Blood Pressure 124/74 106/85 O2 Sat by Pulse 99 97 Oximetry Procedures - Incision & Drainage Consent Obtained: verbal consent Indication: Abscess Site: upper extremity (Left) Size (cm): 3 I&D Cleaning Method: Alcohol Wipe Sterile Field Used?: No Needle Aspiration Performed?: Yes (Only needle aspiration performed) I&D Drainage Obtained: Pus, Blood Culture Obtained?: Yes Complications: pain Patient Tolerated Procedure: well Medical Decision Making - Medical Decision Making Patient is 24-year-old female presenting to emergency Department with a chief complaint of an infection in the arm. Patient is an IV drug user and has been injecting heroin approximately one week ago and the lateral aspect of the left upper arm. Patient reports she developed a lump that has gradually increased in size. Patient reports over the past 24 hours there has been development of erythema and chills. Based on physical examination I could not detect any fluctuance or induration. Cellulitic changes noted. Bedside ultrasound revealed a semi-loculated pus collection. Needle Aspiration was performed and 3 mL of pus were obtained wound culture was sent. Patient was given a gram Rocephin and discharged with Bactrim. Patient was also given Toradol for pain. On discharge patient was still tachycardic and febrile. Patient does fit the SIRS criteria. I advised the patient to remain in the hospital for blood work including basic labs, lactate and blood cultures. Patient refused a states that she needs to go home to [facility]. Patient reports she is going to come back in few hours for further management. Patient will sign AGAINST MEDICAL ADVICE and she verbalized understanding of possible complications if she leaves without further medical management. Strict return parameters were thoroughly discussed with the patient was understanding and agreeable. Case discussed with physician. Disposition Clinical Impression: Injection site abscess Disposition: HOME SELF-CARE Condition: Stable Instructions (If sedation given, give patient instructions): Abscess (ED) Additional Instructions: Please take prescribed medication as directed. Please return to emergency department if symptoms worsen. Prescriptions: Sulfamethox-Tmp 800-160Mg [Bactrim Ds] 1 each PO Q12HR #20 tab Is patient prescribed a controlled substance at d/c from ED?: No Referrals: None,Stated [Primary Care Provider] - 1-2 days Time of Disposition: 23:45
[2019-02-11 00:05] VITALS: BP 106/85; PULSE 121; TEMP 100.6
== END 2019-02-11 00:17 | disposition home or self-care (01) ==
LOC: EC 21:44
DX: L02.414 Cutaneous abscess of left upper limb (principal); L03.114 Cellulitis of left upper limb; F11.90 Opioid use, unspecified, uncomplicated; R65.10 Systemic inflammatory response syndrome (SIRS) of non-infectious origin without acute organ dysfunction; F17.200 Nicotine dependence, unspecified, uncomplicated; Z53.29 Procedure and treatment not carried out because of patient's decision for other reasons
CPT/HCPCS: 87070; 87205; 96372; 10160; 99284; J0696; J1885

== ENCOUNTER 2019-09-13 16:28 | Emergency (ER) | payer BC, OTHER ==
[2019-09-13 16:43] VITALS: TEMP 98.1
--- NOTE | 2019-09-13 16:55 | ED ---
General Adult HPI - General Chief complaint: Overdose Stated complaint: Poss overdose Time Seen by Provider: 09/13/19 16:40 Source: patient, police, EMS, RN notes reviewed Mode of arrival: EMS Limitations: no limitations - History of Present Illness Initial comments: This is a 24-year-old female who apparently was released from correction today and was awake alert oriented she got a ride home [address] from a friend and made it back home apparently in normal condition. She went upstairs to her room and later came down and was found to be somewhat confused and lethargic and the question was that of drug ingestion. The police and EMS were called. Patient brought here for evaluation. She denies any drugs or alcohol. She is demonstrating some lethargy however. - Related Data Home Medications Medication Instructions Recorded Confirmed No Known Home Medications 09/13/19 09/13/19 Allergies Allergy/AdvReac Type Severity Reaction Status Date / Time No Known Allergies Allergy Verified 09/13/19 17:41 Review of Systems ROS Statement: Those systems with pertinent positive or pertinent negative responses have been documented in the HPI. ROS Other: All systems not noted in ROS Statement are negative. Past Medical History Past Medical History: No Reported History Additional Past Medical History / Comment(s): hepatitis C History of Any Multi-Drug Resistant Organisms: None Reported Past Surgical History: No Surgical Hx Reported Past Anesthesia/Blood Transfusion Reactions: Unable to Obtain Additional Past Anesthesia/Blood Transfusion Reaction / Comment(s): Pt has never had general or spinal anesthesia Past Psychological History: ADD/ADHD, Anxiety Smoking Status: Current every day smoker Past Alcohol Use History: None Reported Past Drug Use History: None Reported - Past Family History Mother History Unknown: Yes Additional Family Medical History / Comment(s): Mother has herniated discs Father History Unknown: Yes Additional Family Medical History / Comment(s): unsure- father "not around" General Exam - General Exam Comments Initial Comments: This a well-developed well-nourished awake alert but lethargic female Limitations: no limitations General appearance: alert, lethargic Head exam: Present: atraumatic, normocephalic, normal inspection Eye exam: Present: normal appearance, PERRL, EOMI. Absent: scleral icterus, conjunctival injection, periorbital swelling ENT exam: Present: normal exam, mucous membranes moist Neck exam: Present: normal inspection, full ROM, other (No stridor JVD or bruits). Absent: tenderness, meningismus, lymphadenopathy Respiratory exam: Present: normal lung sounds bilaterally. Absent: respiratory distress, wheezes, rales, rhonchi, stridor Cardiovascular Exam: Present: regular rate, normal rhythm, normal heart sounds. Absent: systolic murmur, diastolic murmur, rubs, gallop, clicks GI/Abdominal exam: Present: soft, normal bowel sounds. Absent: distended, tenderness, guarding, rebound, rigid Extremities exam: Present: normal inspection, full ROM, normal capillary refill. Absent: tenderness, pedal edema, joint swelling, calf tenderness Back exam: Present: normal inspection Neurological exam: Present: alert, oriented X3, CN II-XII intact Psychiatric exam: Present: normal affect, normal mood Skin exam: Present: warm, dry, intact, normal color. Absent: rash Course Vital Signs 09/13/19 16:40 Temperature 98.1 F Pulse Rate 98 Respiratory 18 Rate Blood Pressure 114/79 O2 Sat by Pulse 96 Oximetry Medical Decision Making - Medical Decision Making Patient does demonstrate evidence of drug abuse. Patient will be discharged she is medically cleared for correction. - Lab Data Lab Results 09/13/19 09/13/19 Range/Units Unknown Unknown Urine HCG, Qual Not Detected (Not Detectd) Urine Opiates Screen Detected H (NotDetected) Ur Oxycodone Screen Not Detected (NotDetected) Urine Methadone Screen Not Detected (NotDetected) Ur Propoxyphene Screen Not Detected (NotDetected) Ur Barbiturates Screen Not Detected (NotDetected) U Tricyclic Antidepress Not Detected (NotDetected) Ur Phencyclidine Scrn Not Detected (NotDetected) Ur Amphetamines Screen Not Detected (NotDetected) U Methamphetamines Scrn Not Detected (NotDetected) U Benzodiazepines Scrn Not Detected (NotDetected) Urine Cocaine Screen Not Detected (NotDetected) U Marijuana (THC) Screen Detected H (NotDetected) Disposition Clinical Impression: Substance abuse Disposition: HOME SELF-CARE Condition: Good Instructions (If sedation given, give patient instructions): Cannabis Abuse (ED), Opioid Use Disorder (ED), Polysubstance Abuse (ED) Is patient prescribed a controlled substance at d/c from ED?: No Referrals: None,Stated [Primary Care Provider] - 1-2 days
[2019-09-13 17:08] LABS: Amphetamine Screen,Urine Not Detected (NotDetected); Barbiturate Screen,Urine Not Detected (NotDetected); Benzodiazepines Screen,Urine Not Detected (NotDetected); Cocaine Screen,Urine Not Detected (NotDetected); Methadone Screen, Urine Not Detected (NotDetected); Opiate Screen,Urine Detected (NotDetected); Oxycodone Screen, Urine Not Detected (NotDetected); Phencyclidine Screen,Urine Not Detected (NotDetected); Tricyclic Antidepressant,Urine Not Detected (NotDetected); Urn Cannabinoid Scrn Detected (NotDetected)
[2019-09-13 18:06] VITALS: RESP 20
[2019-09-13 18:07] VITALS: BP 118/78; PULSE 85
== END 2019-09-13 18:08 | disposition home or self-care (01) ==
LOC: EC 16:28 → EEVIPCON 16:28 → EC 18:08
DX: F19.10 Other psychoactive substance abuse, uncomplicated (principal); F17.200 Nicotine dependence, unspecified, uncomplicated
CPT/HCPCS: 80306; 81025; 82075; 99284

== ENCOUNTER 2019-09-26 16:05 | Emergency (ER) | payer BC, OTHER ==
[2019-09-26] MEDS ORDERED: SODIUM CHLORIDE 0.9% 1,000 ML IV STA ×2 (16:13)
--- NOTE | 2019-09-26 16:16 | ED ---
Overdose HPI - General Stated Complaint: drug ingestion Time Seen by Provider: 09/26/19 16:05 Source: patient, EMS, RN notes reviewed, old records reviewed Mode of arrival: EMS - History of Present Illness Initial Comments: This is a 24-year-old female history of heroin abuse and drug abuse was brought in by EMS today because of possible overdose he apparently was minimally responsive but then would become awake when spoken to her a physical stimulus. She was recently in this facility for the same type of problem earlier this month. [facility]. She denies any drug ingestion this time but she is very anxious and tearful upon evaluation. MD Complaint: other - Related Data Home Medications Medication Instructions Recorded Confirmed No Known Home Medications 09/13/19 09/13/19 Allergies Allergy/AdvReac Type Severity Reaction Status Date / Time No Known Allergies Allergy Verified 09/13/19 17:41 Review of Systems ROS Statement: Those systems with pertinent positive or pertinent negative responses have been documented in the HPI. ROS Other: All systems not noted in ROS Statement are negative. Past Medical History Past Medical History: No Reported History Additional Past Medical History / Comment(s): hepatitis C History of Any Multi-Drug Resistant Organisms: None Reported Past Surgical History: No Surgical Hx Reported Past Anesthesia/Blood Transfusion Reactions: Unable to Obtain Additional Past Anesthesia/Blood Transfusion Reaction / Comment(s): Pt has never had general or spinal anesthesia Past Psychological History: ADD/ADHD, Anxiety Smoking Status: Current every day smoker Past Alcohol Use History: None Reported Past Drug Use History: None Reported - Past Family History Mother History Unknown: Yes Additional Family Medical History / Comment(s): Mother has herniated discs Father History Unknown: Yes Additional Family Medical History / Comment(s): unsure- father "not around" General Exam - General Exam Comments Initial Comments: This is a well-developed well-nourished awake alert anxious. Female tearful during the interview General appearance: alert, anxious Head exam: Present: atraumatic, normocephalic, normal inspection Eye exam: Present: normal appearance, PERRL, EOMI. Absent: scleral icterus, conjunctival injection, periorbital swelling ENT exam: Present: normal exam, mucous membranes moist Neck exam: Present: normal inspection. Absent: tenderness, meningismus, lymphadenopathy Respiratory exam: Present: normal lung sounds bilaterally. Absent: respiratory distress, wheezes, rales, rhonchi, stridor Cardiovascular Exam: Present: normal rhythm, tachycardia, normal heart sounds. Absent: systolic murmur, diastolic murmur, rubs, gallop, clicks GI/Abdominal exam: Present: soft, normal bowel sounds. Absent: distended, tenderness, guarding, rebound, rigid Extremities exam: Present: normal inspection, full ROM, normal capillary refill. Absent: tenderness, pedal edema, joint swelling, calf tenderness Back exam: Present: normal inspection Neurological exam: Present: alert, oriented X3, CN II-XII intact Psychiatric exam: Present: anxious Skin exam: Present: warm, dry, intact, normal color. Absent: rash Course Vital Signs 09/26/19 09/26/19 09/26/19 16:11 17:46 19:18 Temperature 98.4 F Pulse Rate 112 H 115 H 111 H Respiratory 18 16 16 Rate Blood Pressure 134/79 100/58 118/98 O2 Sat by Pulse 90 L 96 97 Oximetry Medical Decision Making - Medical Decision Making The patient was observed for a period time and was more awake alert. The medication she took was wearing off. Her drug screen was positive for amphetamine and methamphetamine. She was cautioned about this. She'll be discharged she is awake alert oriented history ably ably without difficulty. - Lab Data Result diagrams: 09/26/19 16:31 09/26/19 16:31 Lab Results 09/26/19 09/26/19 09/26/19 Range/Units 16:16 16:31 16:31 WBC 14.7 H (3.8-10.6) k/uL RBC 4.58 (3.80-5.40) m/uL Hgb 13.3 (11.4-16.0) gm/dL Hct 39.4 (34.0-46.0) % MCV 86.1 (80.0-100.0) fL MCH 29.1 (25.0-35.0) pg MCHC 33.9 (31.0-37.0) g/dL RDW 13.4 (11.5-15.5) % Plt Count 348 (150-450) k/uL Neutrophils % 68 % Lymphocytes % 21 % Monocytes % 6 % Eosinophils % 1 % Basophils % 1 % Neutrophils # 10.0 H (1.3-7.7) k/uL Lymphocytes # 3.0 (1.0-4.8) k/uL Monocytes # 0.9 (0-1.0) k/uL Eosinophils # 0.1 (0-0.7) k/uL Basophils # 0.1 (0-0.2) k/uL Sodium 141 (137-145) mmol/L Potassium 4.2 (3.5-5.1) mmol/L Chloride 105 (98-107) mmol/L Carbon Dioxide 25 (22-30) mmol/L Anion Gap 11 mmol/L BUN 15 (7-17) mg/dL Creatinine 0.77 (0.52-1.04) mg/dL Est GFR (CKD-EPI)AfAm >90 (>60 ml/min/1.73 sqM) Est GFR (CKD-EPI)NonAf >90 (>60 ml/min/1.73 sqM) Glucose 104 H (74-99) mg/dL Plasma Lactic Acid Giovanni (0.7-2.0) mmol/L Calcium 9.3 (8.4-10.2) mg/dL Total Bilirubin 0.7 (0.2-1.3) mg/dL AST 41 H (14-36) U/L ALT 26 (4-34) U/L Alkaline Phosphatase 90 (38-126) U/L Creatine Kinase 178 H (30-135) U/L Total Protein 8.2 (6.3-8.2) g/dL Albumin 4.6 (3.5-5.0) g/dL Lipase 60 (23-300) U/L Urine HCG, Qual Not Detected (Not Detectd) Salicylates <1.0 mg/dL Urine Opiates Screen (NotDetected) Ur Oxycodone Screen (NotDetected) Urine Methadone Screen (NotDetected) Ur Propoxyphene Screen (NotDetected) Acetaminophen <10.0 ug/mL Ur Barbiturates Screen (NotDetected) U Tricyclic Antidepress (NotDetected) Ur Phencyclidine Scrn (NotDetected) Ur Amphetamines Screen (NotDetected) U Methamphetamines Scrn (NotDetected) U Benzodiazepines Scrn (NotDetected) Urine Cocaine Screen (NotDetected) U Marijuana (THC) Screen (NotDetected) Serum Alcohol <10 mg/dL 09/26/19 09/26/19 Range/Units 16:31 17:42 WBC (3.8-10.6) k/uL RBC (3.80-5.40) m/uL Hgb (11.4-16.0) gm/dL Hct (34.0-46.0) % MCV (80.0-100.0) fL MCH (25.0-35.0) pg MCHC (31.0-37.0) g/dL RDW (11.5-15.5) % Plt Count (150-450) k/uL Neutrophils % % Lymphocytes % % Monocytes % % Eosinophils % % Basophils % % Neutrophils # (1.3-7.7) k/uL Lymphocytes # (1.0-4.8) k/uL Monocytes # (0-1.0) k/uL Eosinophils # (0-0.7) k/uL Basophils # (0-0.2) k/uL Sodium (137-145) mmol/L Potassium (3.5-5.1) mmol/L Chloride (98-107) mmol/L Carbon Dioxide (22-30) mmol/L Anion Gap mmol/L BUN (7-17) mg/dL Creatinine (0.52-1.04) mg/dL Est GFR (CKD-EPI)AfAm (>60 ml/min/1.73 sqM) Est GFR (CKD-EPI)NonAf (>60 ml/min/1.73 sqM) Glucose (74-99) mg/dL Plasma Lactic Acid Giovanni 0.7 (0.7-2.0) mmol/L Calcium (8.4-10.2) mg/dL Total Bilirubin (0.2-1.3) mg/dL AST (14-36) U/L ALT (4-34) U/L Alkaline Phosphatase (38-126) U/L Creatine Kinase (30-135) U/L Total Protein (6.3-8.2) g/dL Albumin (3.5-5.0) g/dL Lipase (23-300) U/L Urine HCG, Qual (Not Detectd) Salicylates mg/dL Urine Opiates Screen Not Detected (NotDetected) Ur Oxycodone Screen Not Detected (NotDetected) Urine Methadone Screen Not Detected (NotDetected) Ur Propoxyphene Screen Not Detected (NotDetected) Acetaminophen ug/mL Ur Barbiturates Screen Not Detected (NotDetected) U Tricyclic Antidepress Not Detected (NotDetected) Ur Phencyclidine Scrn Not Detected (NotDetected) Ur Amphetamines Screen Detected H (NotDetected) U Methamphetamines Scrn Detected H (NotDetected) U Benzodiazepines Scrn Not Detected (NotDetected) Urine Cocaine Screen Not Detected (NotDetected) U Marijuana (THC) Screen Not Detected (NotDetected) Serum Alcohol mg/dL Disposition Clinical Impression: Drug abuse, amphetamine type Disposition: HOME SELF-CARE Condition: Good Instructions (If sedation given, give patient instructions): Methamphetamine Abuse (ED) Is patient prescribed a controlled substance at d/c from ED?: No Referrals: None,Stated [Primary Care Provider] - 1-2 days
[2019-09-26 16:24] VITALS: TEMP 98.4
[2019-09-26 16:41] LABS: Basophils # (A) 0.1 k/uL (0-0.2); Basophils % (A) 1 %; Eosinophils # (A) 0.1 k/uL (0-0.7); Eosinophils % (A) 1 %; HCT 39.4 % (34.0-46.0); HGB 13.3 gm/dL (11.4-16.0); Lymphocytes % (A) 21 %; MCH 29.1 pg (25.0-35.0); MCHC 33.9 g/dL (31.0-37.0); MCV 86.1 fL (80.0-100.0); Mean Platelet Volume 7.4; Monocytes # (A) 0.9 k/uL (0-1.0); Monocytes % (A) 6 %; Neutrophils % (A) 68 %; Platelet Count 348 k/uL (150-450); RBC 4.58 m/uL (3.80-5.40); RDW 13.4 % (11.5-15.5); WBC 14.7 k/uL (3.8-10.6)
[2019-09-26 16:50] LABS: ALT 26 U/L (4-34); AST 41 U/L (14-36); Acetaminophen <10.0 ug/mL; African American GFR (CKD) >90 (>60 ml/min/1.73 sqM); Albumin 4.6 g/dL (3.5-5.0); Alcohol <10 mg/dL; Alkaline Phosphatase 90 U/L (38-126); Anion Gap 11 mmol/L; Blood Urea Nitrogen 15 mg/dL (7-17); Calcium 9.3 mg/dL (8.4-10.2); Carbon Dioxide 25 mmol/L (22-30); Chloride 105 mmol/L (98-107); Creatine Kinase 178 U/L (30-135); Glucose 104 mg/dL (74-99); Non-African American GFR(CKD) >90 (>60 ml/min/1.73 sqM); Potassium 4.2 mmol/L (3.5-5.1); Salicylate <1.0 mg/dL; Sodium 141 mmol/L (137-145); Total Bilirubin 0.7 mg/dL (0.2-1.3); Total Protein 8.2 g/dL (6.3-8.2)
[2019-09-26 17:47] VITALS: RESP 16
[2019-09-26 18:04] LABS: Amphetamine Screen,Urine Detected (NotDetected); Barbiturate Screen,Urine Not Detected (NotDetected); Benzodiazepines Screen,Urine Not Detected (NotDetected); Cocaine Screen,Urine Not Detected (NotDetected); Methadone Screen, Urine Not Detected (NotDetected); Opiate Screen,Urine Not Detected (NotDetected); Oxycodone Screen, Urine Not Detected (NotDetected); Phencyclidine Screen,Urine Not Detected (NotDetected); Tricyclic Antidepressant,Urine Not Detected (NotDetected); Urn Cannabinoid Scrn Not Detected (NotDetected)
--- NOTE | 2019-09-26 20:07 | ED ---
Medical Decision Making - Lab Data Result diagrams: 09/26/19 16:31 09/26/19 16:31 Lab Results 09/26/19 09/26/19 09/26/19 Range/Units 16:16 16:31 16:31 WBC 14.7 H (3.8-10.6) k/uL RBC 4.58 (3.80-5.40) m/uL Hgb 13.3 (11.4-16.0) gm/dL Hct 39.4 (34.0-46.0) % MCV 86.1 (80.0-100.0) fL MCH 29.1 (25.0-35.0) pg MCHC 33.9 (31.0-37.0) g/dL RDW 13.4 (11.5-15.5) % Plt Count 348 (150-450) k/uL Neutrophils % 68 % Lymphocytes % 21 % Monocytes % 6 % Eosinophils % 1 % Basophils % 1 % Neutrophils # 10.0 H (1.3-7.7) k/uL Lymphocytes # 3.0 (1.0-4.8) k/uL Monocytes # 0.9 (0-1.0) k/uL Eosinophils # 0.1 (0-0.7) k/uL Basophils # 0.1 (0-0.2) k/uL Sodium 141 (137-145) mmol/L Potassium 4.2 (3.5-5.1) mmol/L Chloride 105 (98-107) mmol/L Carbon Dioxide 25 (22-30) mmol/L Anion Gap 11 mmol/L BUN 15 (7-17) mg/dL Creatinine 0.77 (0.52-1.04) mg/dL Est GFR (CKD-EPI)AfAm >90 (>60 ml/min/1.73 sqM) Est GFR (CKD-EPI)NonAf >90 (>60 ml/min/1.73 sqM) Glucose 104 H (74-99) mg/dL Plasma Lactic Acid Giovanni (0.7-2.0) mmol/L Calcium 9.3 (8.4-10.2) mg/dL Total Bilirubin 0.7 (0.2-1.3) mg/dL AST 41 H (14-36) U/L ALT 26 (4-34) U/L Alkaline Phosphatase 90 (38-126) U/L Creatine Kinase 178 H (30-135) U/L Total Protein 8.2 (6.3-8.2) g/dL Albumin 4.6 (3.5-5.0) g/dL Lipase 60 (23-300) U/L Urine HCG, Qual Not Detected (Not Detectd) Salicylates <1.0 mg/dL Urine Opiates Screen (NotDetected) Ur Oxycodone Screen (NotDetected) Urine Methadone Screen (NotDetected) Ur Propoxyphene Screen (NotDetected) Acetaminophen <10.0 ug/mL Ur Barbiturates Screen (NotDetected) U Tricyclic Antidepress (NotDetected) Ur Phencyclidine Scrn (NotDetected) Ur Amphetamines Screen (NotDetected) U Methamphetamines Scrn (NotDetected) U Benzodiazepines Scrn (NotDetected) Urine Cocaine Screen (NotDetected) U Marijuana (THC) Screen (NotDetected) Serum Alcohol <10 mg/dL 09/26/19 09/26/19 Range/Units 16:31 17:42 WBC (3.8-10.6) k/uL RBC (3.80-5.40) m/uL Hgb (11.4-16.0) gm/dL Hct (34.0-46.0) % MCV (80.0-100.0) fL MCH (25.0-35.0) pg MCHC (31.0-37.0) g/dL RDW (11.5-15.5) % Plt Count (150-450) k/uL Neutrophils % % Lymphocytes % % Monocytes % % Eosinophils % % Basophils % % Neutrophils # (1.3-7.7) k/uL Lymphocytes # (1.0-4.8) k/uL Monocytes # (0-1.0) k/uL Eosinophils # (0-0.7) k/uL Basophils # (0-0.2) k/uL Sodium (137-145) mmol/L Potassium (3.5-5.1) mmol/L Chloride (98-107) mmol/L Carbon Dioxide (22-30) mmol/L Anion Gap mmol/L BUN (7-17) mg/dL Creatinine (0.52-1.04) mg/dL Est GFR (CKD-EPI)AfAm (>60 ml/min/1.73 sqM) Est GFR (CKD-EPI)NonAf (>60 ml/min/1.73 sqM) Glucose (74-99) mg/dL Plasma Lactic Acid Giovanni 0.7 (0.7-2.0) mmol/L Calcium (8.4-10.2) mg/dL Total Bilirubin (0.2-1.3) mg/dL AST (14-36) U/L ALT (4-34) U/L Alkaline Phosphatase (38-126) U/L Creatine Kinase (30-135) U/L Total Protein (6.3-8.2) g/dL Albumin (3.5-5.0) g/dL Lipase (23-300) U/L Urine HCG, Qual (Not Detectd) Salicylates mg/dL Urine Opiates Screen Not Detected (NotDetected) Ur Oxycodone Screen Not Detected (NotDetected) Urine Methadone Screen Not Detected (NotDetected) Ur Propoxyphene Screen Not Detected (NotDetected) Acetaminophen ug/mL Ur Barbiturates Screen Not Detected (NotDetected) U Tricyclic Antidepress Not Detected (NotDetected) Ur Phencyclidine Scrn Not Detected (NotDetected) Ur Amphetamines Screen Detected H (NotDetected) U Methamphetamines Scrn Detected H (NotDetected) U Benzodiazepines Scrn Not Detected (NotDetected) Urine Cocaine Screen Not Detected (NotDetected) U Marijuana (THC) Screen Not Detected (NotDetected) Serum Alcohol mg/dL - EKG Data -: EKG Interpreted by Me EKG shows normal: sinus rhythm EKG Comments: EKG shows sinus tachycardia with a rate of 111. Interval 138 QRS duration 82 QT since QTC 314/427 nonspecific T-wave configuration no acute ST-T wave changes seen Disposition Clinical Impression: Drug abuse, amphetamine type Disposition: HOME SELF-CARE Condition: Good Instructions (If sedation given, give patient instructions): Methamphetamine Abuse (ED) Is patient prescribed a controlled substance at d/c from ED?: No Referrals: None,Stated [Primary Care Provider] - 1-2 days
[2019-09-26 20:13] VITALS: BP 118/98; PULSE 111
== END 2019-09-26 20:06 | disposition home or self-care (01) ==
LOC: EC 16:05
DX: F15.10 Other stimulant abuse, uncomplicated (principal); F17.200 Nicotine dependence, unspecified, uncomplicated; B19.20 Unspecified viral hepatitis C without hepatic coma
CPT/HCPCS: 36415; 80053; 80306; 80320; 80329; 81025; 82550; 83520; 83605; 83690; 85025; 93005; 96360; 96361; 99284

== ENCOUNTER 2019-12-31 03:00 | Emergency (ER) | payer OTHER ==
--- NOTE | 2019-12-31 03:25 | ED ---
Psych HPI - General Source: patient, EMS Mode of arrival: EMS - History of Present Illness MD Complaint: other -: minutes(s) Associated Psychiatric Symptoms: none Improves With: none Worsens With: none Associated Symptoms: denies other symptoms <Blair Turner - Last Filed: 12/31/19 03:22> <Gonzalez Longoria - Last Filed: 12/31/19 15:48> - General Chief Complaint: Psychiatric Symptoms Stated Complaint: Mental health Time Seen by Provider: 12/31/19 03:06 - History of Present Illness Initial Comments: This patient is 24-year-old woman brought to the emergency department to have psychiatric evaluation. The patient reportedly seen by police going and out of the roadway multiple times. The patient denies suicidal or homicidal ideation. The patient states she was just walking because she has a lot on her mind. (Blair Turner) - Related Data Home Medications Medication Instructions Recorded Confirmed No Known Home Medications 09/13/19 12/31/19 Allergies Allergy/AdvReac Type Severity Reaction Status Date / Time No Known Allergies Allergy Verified 12/31/19 07:56 Review of Systems ROS Other: All systems not noted in ROS Statement are negative. Constitutional: Denies: fever, chills Respiratory: Denies: cough, dyspnea Cardiovascular: Denies: chest pain, palpitations Gastrointestinal: Denies: abdominal pain, vomiting, diarrhea Neurological: Denies: headache Psychiatric: Denies: depression, auditory hallucinations, visual hallucinations, homicidal thoughts, suicidal thoughts <Blair Turner - Last Filed: 12/31/19 03:22> ROS Other: All systems not noted in ROS Statement are negative. <Gonzalez Longoria - Last Filed: 12/31/19 15:48> ROS Statement: Those systems with pertinent positive or pertinent negative responses have been documented in the HPI. Past Medical History Past Medical History: No Reported History Additional Past Medical History / Comment(s): hepatitis C History of Any Multi-Drug Resistant Organisms: None Reported Past Surgical History: No Surgical Hx Reported Past Anesthesia/Blood Transfusion Reactions: Unable to Obtain Additional Past Anesthesia/Blood Transfusion Reaction / Comment(s): Pt has never had general or spinal anesthesia Past Psychological History: ADD/ADHD, Anxiety Smoking Status: Current every day smoker Past Alcohol Use History: None Reported Past Drug Use History: None Reported - Past Family History Mother History Unknown: Yes Additional Family Medical History / Comment(s): Mother has herniated discs Father History Unknown: Yes Additional Family Medical History / Comment(s): unsure- father "not around" <Blair Turner - Last Filed: 12/31/19 03:22> General Exam Limitations: no limitations General appearance: alert, in no apparent distress, anxious Head exam: Present: atraumatic, normocephalic Eye exam: Present: normal appearance. Absent: scleral icterus, conjunctival injection Respiratory exam: Present: normal lung sounds bilaterally. Absent: respiratory distress, wheezes, rales, rhonchi, stridor Cardiovascular Exam: Present: normal rhythm, tachycardia (Rate approximately 116 bpm), normal heart sounds. Absent: systolic murmur, diastolic murmur, rubs, gallop GI/Abdominal exam: Present: soft. Absent: distended, tenderness, guarding, rebound Extremities exam: Present: normal inspection Back exam: Present: normal inspection. Absent: CVA tenderness (R), CVA tenderness (L) Neurological exam: Present: alert Psychiatric exam: Present: anxious. Absent: depressed, agitated, flat affect, manic, homicidal ideation, suicidal ideation Skin exam: Present: warm, dry, intact, normal color. Absent: rash <Blair Turner - Last Filed: 12/31/19 03:22> Course Vital Signs 12/31/19 12/31/19 03:03 14:55 Temperature 98.6 F 98.5 F Pulse Rate 117 H 89 Respiratory 19 18 Rate Blood Pressure 126/75 119/68 O2 Sat by Pulse 98 100 Oximetry Medical Decision Making <Gonzalez Longoria - Last Filed: 12/31/19 15:48> - Medical Decision Making Patient seen by mental health services with plan for transfer for psychiatric care. Patient reevaluated. Patient is somewhat restless with flight of ideas. Patient reportedly was running away from people that were not present and running into the street. Positive clinical certificate completed (Gonzalez Longoria) - Lab Data Lab Results 12/31/19 12/31/19 Range/Units 03:33 03:33 Urine Color Yellow Urine Appearance Cloudy H (Clear) Urine pH 5.5 (5.0-8.0) Ur Specific [place] 1.026 (1.001-1.035) Urine Protein Trace H (Negative) Urine Glucose (UA) Negative (Negative) Urine Ketones Negative (Negative) Urine Blood Moderate H (Negative) Urine Nitrite Negative (Negative) Urine Bilirubin Negative (Negative) Urine Urobilinogen 2.0 (<2.0) mg/dL Ur Leukocyte Esterase Negative (Negative) Urine RBC 55 H (0-5) /hpf Urine WBC 3 (0-5) /hpf Ur Squamous Epith Cells 12 H (0-4) /hpf Urine Bacteria Rare H (None) /hpf Urine Mucus Occasional H (None) /hpf Urine HCG, Qual Not Detected (Not Detectd) Urine Opiates Screen Not Detected (NotDetected) Ur Oxycodone Screen Not Detected (NotDetected) Urine Methadone Screen Not Detected (NotDetected) Ur Propoxyphene Screen Not Detected (NotDetected) Ur Barbiturates Screen Not Detected (NotDetected) U Tricyclic Antidepress Not Detected (NotDetected) Ur Phencyclidine Scrn Not Detected (NotDetected) Ur Amphetamines Screen Detected H (NotDetected) U Methamphetamines Scrn Not Detected (NotDetected) U Benzodiazepines Scrn Not Detected (NotDetected) Urine Cocaine Screen Not Detected (NotDetected) U Marijuana (THC) Screen Detected H (NotDetected) Disposition <Blair Turner - Last Filed: 12/31/19 03:22> Is patient prescribed a controlled substance at d/c from ED?: No Time of Disposition: 15:48 <Gonzalez Longoria - Last Filed: 12/31/19 15:48> Clinical Impression: Psychosis Disposition: TRANSFER TO PSYCH HOSP/UNIT Referrals: None,Stated [Primary Care Provider] - 1-2 days
[2019-12-31 03:54] LABS: Appearance,Urine Cloudy (Clear); Bacteria,Urine Rare /hpf; Bilirubin,Urine Negative (Negative); Blood,Urine Moderate (Negative); Color,Urine Yellow; Glucose,Urine (UA) Negative (Negative); Ketones,Urine Negative (Negative); Leukocyte Esterase,Urine Negative (Negative); Mucus,Urine Occasional /hpf; Nitrite,Urine Negative (Negative); PH, Urine 5.5 (5.0-8.0); Protein,Urine Trace (Negative); RBC,Urine 55 /hpf (0-5); Specific Gravity,Urine 1.026 (1.001-1.035); Squamous Epithelial Cell,Urine 12 /hpf (0-4); WBC,Urine 3 /hpf (0-5)
[2019-12-31 03:55] LABS: Amphetamine Screen,Urine Detected (NotDetected); Barbiturate Screen,Urine Not Detected (NotDetected); Benzodiazepines Screen,Urine Not Detected (NotDetected); Cocaine Screen,Urine Not Detected (NotDetected); Methadone Screen, Urine Not Detected (NotDetected); Opiate Screen,Urine Not Detected (NotDetected); Oxycodone Screen, Urine Not Detected (NotDetected); Phencyclidine Screen,Urine Not Detected (NotDetected); Tricyclic Antidepressant,Urine Not Detected (NotDetected); Urn Cannabinoid Scrn Detected (NotDetected)
[2019-12-31] MEDS ORDERED: ZIPRASIDONE 20 MG VIAL IM STA ×2 (03:56→17:41)
[2019-12-31] MEDS ORDERED: ALPRAZolam 1 MG TAB PO STA (05:48)
[2019-12-31] MEDS ORDERED: LORazepam 1 MG TAB PO STA (16:45)
[2019-12-31 22:04] VITALS: BP 92/50; PULSE 86; RESP 16; TEMP 98.6
== END 2019-12-31 21:50 ==
LOC: EC 03:00
DX: F29 Unspecified psychosis not due to a substance or known physiological condition (principal); F17.200 Nicotine dependence, unspecified, uncomplicated
CPT/HCPCS: 82075; 81001; 81025; 80306; 99285; 96372; J3486

== ENCOUNTER 2020-02-03 20:46 | Emergency (ER) | payer OTHER ==
[2020-02-03 21:01] VITALS: TEMP 97.9
[2020-02-03] MEDS ORDERED: DIPH,PERTUS(ACELL)TETVAC-LF 0.5 ML VIAL IM ONE (21:01)
--- NOTE | 2020-02-03 21:01 | ED ---
General Adult HPI - General Chief complaint: Overdose Stated complaint: overdose Time Seen by Provider: 02/03/20 20:50 Source: patient, police, EMS Mode of arrival: EMS Limitations: no limitations - History of Present Illness Initial comments: Dictation was produced using [employer] dictation software. please excuse any grammatical, word or spelling errors. This patient was cared for during a federal and state declared state of emergency secondary to Covid 19 Chief Complaint: 25-year-old female brought to the emergency department for o piate overdose. History of Present Illness: 25-year-old female she openly admits to using heroin today. Patient states she snorted some heroin. According to nurses received report from EMS patient was found to be unresponsive and agonal breathing in a vehicle of a car. EMS arrived upon arrival after being called by the other individual in the vehicle. She did proceeded to bag patient and they gave her intranasal Narcan with improvement of mental status and respiratory status. Patient states she has some left elbow pain. Allegedly she scraped her lateral elbow during this whole incident. Patient reports that her tetanus is up-to-date. Patient is upset because she has been clean from illicit drug use for so long until today. The ROS documented in this emergency department record has been reviewed and confirmed by me. Those systems with pertinent positive or negative responses have been documented in the HPI. All other systems are other negative and/or noncontributory. PHYSICAL EXAM: General Impression: Alert and oriented x3, not in acute distress HEENT: Normocephalic atraumatic, extra-ocular movements intact, pupils equal and reactive to light bilaterally, mucous membranes moist. Cardiovascular: Heart regular rate and rhythm Chest: Able to complete full sentences, no retractions, no tachypnea Abdomen: abdomen soft, non-tender, non-distended, no organomegaly Musculoskeletal: Pulses present and equal in all extremities, no peripheral edema Motor: no focal deficits noted Neurological: CN II-XII grossly intact, no focal motor or sensory deficits noted Skin: Intact with no visualized rashes, superficial abrasion to the left lateral elbow Psych: Tearful ED course: 25-year-old male presents after heroin overdose. Vital signs upon arrival shows heart rate of 120, oxygen 94% on room air.Urine is negative. Chest x-ray shows left perihilar infiltrate. Patient is moderate in emergency department. She did appear sleepy and started showing some hypoxia without any supplemental oxygen. Patient placed on nasal cannula. Patient ordered for 2 mg of intranasal Narcan no changes of medical status.. Patient does report having some coughing over the last couple days. Concerta computed quite pneumonia. Patient given a dose of Zithromax. Patient continues to be mildly hypoxic without supplemental oxygen. Is unclear whether patient's hypoxia is from noncardiogenic pulmonary edema versus pneumonia. She'll be admitted to [facility] hospitalist group. EKG interpretation: Ventricular rate 117, sinus tachycardia,. Interval 136, QRS 82, QTc 451. No [place] prolongation, no QTC prolongation, no ST or T-wave changes noted. Overall, this EKG is unremarkable - Related Data Previous Rx's Medication Instructions Recorded Azithromycin [Zithromax Z-pack] 0 mg PO DIRECTED #6 tab 02/03/20 Allergies Allergy/AdvReac Type Severity Reaction Status Date / Time No Known Allergies Allergy Verified 02/03/20 22:17 Review of Systems ROS Statement: Those systems with pertinent positive or pertinent negative responses have been documented in the HPI. ROS Other: All systems not noted in ROS Statement are negative. Past Medical History Past Medical History: No Reported History Additional Past Medical History / Comment(s): hepatitis C History of Any Multi-Drug Resistant Organisms: None Reported Past Surgical History: No Surgical Hx Reported Past Anesthesia/Blood Transfusion Reactions: Unable to Obtain Additional Past Anesthesia/Blood Transfusion Reaction / Comment(s): Pt has never had general or spinal anesthesia Past Psychological History: ADD/ADHD, Anxiety Smoking Status: Current every day smoker Past Alcohol Use History: None Reported Past Drug Use History: Cocaine, Heroin - Past Family History Mother History Unknown: Yes Additional Family Medical History / Comment(s): Mother has herniated discs Father History Unknown: Yes Additional Family Medical History / Comment(s): unsure- father "not around" General Exam Limitations: no limitations Course Vital Signs 02/03/20 02/03/20 02/03/20 20:54 21:58 22:54 Temperature 97.9 F Pulse Rate 120 H 105 H 112 H Respiratory 22 12 22 Rate Blood Pressure 128/94 126/88 110/83 O2 Sat by Pulse 94 L 94 L 92 L Oximetry 02/03/20 23:06 Temperature Pulse Rate Respiratory 16 Rate Blood Pressure O2 Sat by Pulse Oximetry Medical Decision Making - Lab Data Lab Results 02/03/20 Range/Units 22:02 Urine HCG, Qual Not Detected (Not Detectd) Disposition Clinical Impression: Acute respiratory failure with hypoxia Disposition: ADMITTED IP TO THIS HOSP Condition: Fair Prescriptions: Azithromycin [Zithromax Z-pack] 0 mg PO DIRECTED #6 tab Referrals: Jose E Hernández MD [Primary Care Provider] - 1-2 days Decision Time: 23:32
[2020-02-03] MEDS ORDERED: ACETAMINOPHEN TAB 500 MG TAB PO STA (21:51)
--- NOTE | 2020-02-03 22:09 | XR ---
EXAMINATION TYPE: XR chest 1V portable DATE OF EXAM: 02/03/2020 COMPARISON: 01/20/2018 INDICATION: Heroin overdose TECHNIQUE: Single frontal view of the chest is obtained. FINDINGS: The heart size is normal. The pulmonary vasculature is normal. There is increased perihilar lung markings on the left. Correlate for aspiration pneumonia IMPRESSION: 1. Left perihilar infiltrate. Consider aspiration pneumonia.
[2020-02-03] MEDS ORDERED: AZITHROMYCIN 500 MG TAB PO STA (22:29)
[2020-02-03] MEDS ORDERED: NALOXONE 0.4 MG/ML 1 ML VIAL IV STA (22:36)
[2020-02-03] MEDS ORDERED: NALOXONE 1 MG/ML 2 ML SYRINGE IV STA (22:51)
[2020-02-03] MEDS ORDERED: IBUPROFEN 800 MG TAB PO STA (23:26)
[2020-02-03] MEDS ORDERED: ACETAMINOPHEN TAB 325 MG TAB PO PRN (23:32)
[2020-02-03] MEDS ORDERED: NALOXONE 0.4 MG/ML 1 ML VIAL IV PRN (23:32)
[2020-02-03] MEDS ORDERED: IBUPROFEN 400 MG TAB PO PRN (23:32)
[2020-02-03 23:57] VITALS: BP 108/82; PULSE 94; RESP 18
[2020-02-04] MEDS ORDERED: LORazepam 2 MG/ML INJ IV PRN (00:54)
[2020-02-04] MEDS ORDERED: PIPERACILLIN-TAZOBACTAM 3.375 GM in SODIUM CHLORIDE 0.9% 100 ML IVPB SCH (01:00)
--- NOTE | 2020-02-04 08:21 | HP ---
HISTORY AND PHYSICAL DATE OF SERVICE: 02/03/2020 CHIEF COMPLAINT: Overdose. HISTORY OF PRESENT ILLNESS: This 25-year-old woman with a past medical history of multiple medical problems including hepatitis C, history of ADHD, anxiety, was previously admitted with alcohol intoxication and apparent accidental overdose. Currently the patient is admitted with opiate overdose. She is now doing some heroin. The patient was found unresponsive with agonal breathing in a vehicle. EMS bagged the patient and intranasal Narcan was administered with some improvement of the mental status. The patient is being admitted for further evaluation and treatment. There is no history of fever, rigors, chills. No history of any headache, loss of consciousness, seizures. The chest x-ray showed possibly left perihilar infiltrate showing possible aspiration pneumonia. PAST MEDICAL HISTORY: Hepatitis C, ADHD, history of substance abuse. MEDICATIONS: Z-Raji. ALLERGIES: None. FAMILY HISTORY: Herniated disc in mother. SOCIAL HISTORY: Smoking, alcohol and substance abuse as mentioned earlier. REVIEW OF SYSTEMS: ENT: No diminished vision or hearing. CARDIOVASCULAR: No angina or palpitations. RESPIRATORY: No cough or hemoptysis. GI: No nausea or vomiting. : No dysuria. NERVOUS SYSTEM: As mentioned earlier. ALLERGY/IMMUNOLOGY: No asthma or hayfever. MUSCULOSKELETAL: As mentioned earlier. HEMATOLOGY: No history of anemia. ENDOCRINE: No history of diabetes or hypothyroidism. CONSTITUTIONAL: As mentioned earlier. DERMATOLOGY: Negative. RHEUMATOLOGY: Negative. PSYCHIATRY: As mentioned earlier. PHYSICAL EXAMINATION: GENERAL: Patient is alert and oriented times three. VITAL SIGNS: Pulse 112, blood pressure 110/83, respirations 22, temperature 97, pulse ox 92% on 4 L. HEENT: Conjunctivae normal. Oral mucosa moist. NECK: No jugular venous distention or carotid bruits. No lymph node enlargement. RESPIRATORY: Breath sounds diminished at the bases. A few rhonchi, no crackles. HEART: S1 and S2, muffled. ABDOMEN: Soft, no tenderness. No masses palpable. EXTREMITIES: No edema, no swelling. NERVOUS: Higher functions as mentioned earlier. Moves all four limbs. No focal deficit otherwise. SKIN: No rashes. JOINTS: No active deforming arthropathy. LYMPHATICS: No lymph nodes in the neck or axilla. ASSESSMENT: 1. Change in mental status and acute metabolic encephalopathy post secondary to heroin overdosage, status post Narcan. 2. Possible bilateral pneumonia, aspiration, left more than the right, rule out congestive heart failure. 3. History hepatitis C. 4. History of alcohol intoxication. 5. History of attention deficit hyperactivity disorder. 6. History of anxiety. 7. History of continued ongoing nicotine dependence. RECOMMENDATIONS AND DISCUSSION: Recommend to continue current management and symptomatic treatment. Otherwise continue the broad-spectrum IV antibiotics. Order a 2D echo and as well as BNP. Psychiatric consultation, possibly. Overall prognosis guarded because of multiple complex medical issues. outreach worker evaluation for substance abuse counseling. MMODL / IJN: [id number] /
[2020-02-04] MEDS ORDERED: cloNIDine HCL 0.1 MG TAB PO SCH (09:00)
[2020-02-04] MEDS ORDERED: PANTOPRAZOLE 40 MG/10 ML VIAL IVP SCH (09:00)
== END 2020-02-03 23:57 | disposition left against medical advice (07) ==
LOC: EC 20:46 → UNDOADMOB 23:33 → 1SOBS 23:33
DX: J96.01 Acute respiratory failure with hypoxia (principal); F17.200 Nicotine dependence, unspecified, uncomplicated
CPT/HCPCS: 81025; 71045; 99285; 96374; J2310

== ENCOUNTER 2021-12-12 20:33 | Observation (INO) | payer OTHER ==
[2021-12-12] MEDS ORDERED: LORazepam 2 MG/ML INJ IV STA ×2 (20:52→23:14)
[2021-12-12] MEDS ORDERED: NALOXONE 0.4 MG/ML 1 ML VIAL IVP STA (20:52)
--- NOTE | 2021-12-12 20:57 | ED ---
General Adult HPI - General Chief complaint: Overdose Stated complaint: Altered Mental Status Time Seen by Provider: 12/12/21 20:47 Source: patient, police, EMS Mode of arrival: ambulatory - History of Present Illness Initial comments: Dictation was produced using [employer] dictation software. please excuse any grammatical, word or spelling errors. Chief Complaint: 26-year-old female brought to the emergency department for concerns of overdose and altered mental status History of Present Illness: 18-year-old female presents to the emergency department for altered mental status. Patient instructed to bilateral enforcement. According to our law enforcement colleagues patient was seen by neighbor to be behaving strangely. She was witnessed to be rolling around on the ground outside. Enforcement apprehended patient brought her to the emergency department. Patient is a poor historian. Patient denies taking any drugs today. Unable to obtain secondary to mental status PHYSICAL EXAM: General Impression: Alert and oriented x3, not in acute distress, diaphoretic, agitated HEENT: Normocephalic atraumatic, extra-ocular movements intact, pupils equal and reactive to light bilaterally, mucous membranes moist, pinpoint pupils Cardiovascular: Heart regular rate and rhythm Chest: Able to complete full sentences, no retractions, no tachypnea Abdomen: abdomen soft, non-tender, non-distended, no organomegaly Musculoskeletal: Pulses present and equal in all extremities, no peripheral edema Motor: no focal deficits noted Neurological: CN II-XII grossly intact, no focal motor or sensory deficits noted Skin: Intact with no visualized rashes Psych: Anxious and pressured speech ED course: 26 y Old female presents to the emergency department for concerns of agitated delirium likely secondary to sympathomimetic substances. She is given 4 mg of IV Ativan with adequate sedation. Vital signs upon arrival are within acceptable limits. Laboratory evaluation obtained. Mild leukocytosis of 14.8 likely secondary to stress. Coag panel is negative. Metabolic panel is unremarkable. No Acidosis. Renal markers are intact. Tox labs are negative. Computed tomography scan of the brain is unremarkable for acute processes. Patient be admitted for medical monitoring. Case discussed with Dr. michele. Patient admitted to [facility]. EKG interpretation: Ventricular rate 124, sinus tachycardia, MA interval 140, care is 85, QTC 410. No MA prolongation, no QTC prolongation, no ST or T-wave changes noted. Overall, this EKG is unremarkable - Related Data Home Medications Medication Instructions Recorded Confirmed Buprenorphine HCl/Naloxone HCl 1 film SL BID 12/12/21 12/12/21 [Suboxone 8 mg-2 mg Sl Film] QUEtiapine FUMARATE 50 mg PO HS 12/12/21 12/12/21 Allergies Allergy/AdvReac Type Severity Reaction Status Date / Time No Known Allergies Allergy Verified 12/12/21 21:50 Review of Systems ROS Statement: Those systems with pertinent positive or pertinent negative responses have been documented in the HPI. ROS Other: All systems not noted in ROS Statement are negative. Past Medical History Past Medical History: No Reported History Additional Past Medical History / Comment(s): hepatitis C History of Any Multi-Drug Resistant Organisms: None Reported Past Surgical History: No Surgical Hx Reported Past Anesthesia/Blood Transfusion Reactions: Unable to Obtain Additional Past Anesthesia/Blood Transfusion Reaction / Comment(s): Pt has never had general or spinal anesthesia Past Psychological History: ADD/ADHD, Anxiety Smoking Status: Current every day smoker Past Alcohol Use History: None Reported Past Drug Use History: Cocaine, Heroin - Past Family History Mother History Unknown: Yes Additional Family Medical History / Comment(s): Mother has herniated discs Father History Unknown: Yes Additional Family Medical History / Comment(s): unsure- father "not around" Course Vital Signs 12/12/21 12/12/21 12/12/21 20:49 20:52 20:53 Temperature 99 F Pulse Rate 110 H Respiratory 24 24 Rate Blood Pressure 121/60 O2 Sat by Pulse 100 Oximetry Medical Decision Making - Lab Data Result diagrams: 12/12/21 21:35 12/12/21 21:35 Lab Results 12/12/21 12/12/21 12/12/21 Range/Units 21:32 21:35 21:35 WBC 14.8 H (3.8-10.6) k/uL RBC 4.58 (3.80-5.40) m/uL Hgb 13.6 (11.4-16.0) gm/dL Hct 39.1 (34.0-46.0) % MCV 85.2 (80.0-100.0) fL MCH 29.6 (25.0-35.0) pg MCHC 34.7 (31.0-37.0) g/dL RDW 13.3 (11.5-15.5) % Plt Count 300 (150-450) k/uL MPV 7.9 Neutrophils % 83 % Lymphocytes % 10 % Monocytes % 5 % Eosinophils % 1 % Basophils % 0 % Neutrophils # 12.3 H (1.3-7.7) k/uL Lymphocytes # 1.5 (1.0-4.8) k/uL Monocytes # 0.7 (0-1.0) k/uL Eosinophils # 0.2 (0-0.7) k/uL Basophils # 0.1 (0-0.2) k/uL PT (9.0-12.0) sec INR (<1.2) APTT (22.0-30.0) sec Sodium 138 (137-145) mmol/L Potassium 3.8 (3.5-5.1) mmol/L Chloride 105 (98-107) mmol/L Carbon Dioxide 24 (22-30) mmol/L Anion Gap 9 mmol/L BUN 13 (7-17) mg/dL Creatinine 0.99 (0.52-1.04) mg/dL Est GFR (CKD-EPI)AfAm >90 (>60 ml/min/1.73 sqM) Est GFR (CKD-EPI)NonAf 78 (>60 ml/min/1.73 sqM) Glucose 89 (74-99) mg/dL POC Glucose (mg/dL) 96 (70-110) mg/dL POC Glu Motor Patrol Operator ID Tiburcio Rodriguez Osmolality [phone] (280-301) mosm/kg Plasma Lactic Acid Giovanni (0.7-2.0) mmol/L Calcium 9.1 (8.4-10.2) mg/dL Magnesium 2.4 H (1.6-2.3) mg/dL Total Bilirubin 0.6 (0.2-1.3) mg/dL AST 49 H (14-36) U/L ALT 21 (4-34) U/L Alkaline Phosphatase 78 (38-126) U/L Creatine Kinase 491 H (30-135) U/L Total Protein 7.2 (6.3-8.2) g/dL Albumin 4.4 (3.5-5.0) g/dL Salicylates <1.0 mg/dL Acetaminophen <10.0 ug/mL Serum Alcohol <10 mg/dL 12/12/21 12/12/21 Range/Units 21:35 21:35 WBC (3.8-10.6) k/uL RBC (3.80-5.40) m/uL Hgb (11.4-16.0) gm/dL Hct (34.0-46.0) % MCV (80.0-100.0) fL MCH (25.0-35.0) pg MCHC (31.0-37.0) g/dL RDW (11.5-15.5) % Plt Count (150-450) k/uL MPV Neutrophils % % Lymphocytes % % Monocytes % % Eosinophils % % Basophils % % Neutrophils # (1.3-7.7) k/uL Lymphocytes # (1.0-4.8) k/uL Monocytes # (0-1.0) k/uL Eosinophils # (0-0.7) k/uL Basophils # (0-0.2) k/uL PT 10.9 (9.0-12.0) sec INR 1.0 (<1.2) APTT 23.1 (22.0-30.0) sec Sodium (137-145) mmol/L Potassium (3.5-5.1) mmol/L Chloride (98-107) mmol/L Carbon Dioxide (22-30) mmol/L Anion Gap mmol/L BUN (7-17) mg/dL Creatinine (0.52-1.04) mg/dL Est GFR (CKD-EPI)AfAm (>60 ml/min/1.73 sqM) Est GFR (CKD-EPI)NonAf (>60 ml/min/1.73 sqM) Glucose (74-99) mg/dL POC Glucose (mg/dL) (70-110) mg/dL POC Glu Motor Patrol Operator ID Osmolality (280-301) mosm/kg Plasma Lactic Acid Giovanni 1.0 (0.7-2.0) mmol/L Calcium (8.4-10.2) mg/dL Magnesium (1.6-2.3) mg/dL Total Bilirubin (0.2-1.3) mg/dL AST (14-36) U/L ALT (4-34) U/L Alkaline Phosphatase (38-126) U/L Creatine Kinase (30-135) U/L Total Protein (6.3-8.2) g/dL Albumin (3.5-5.0) g/dL Salicylates mg/dL Acetaminophen ug/mL Serum Alcohol mg/dL Disposition Clinical Impression: Drug overdose Disposition: ADMITTED IP TO THIS HOSP Condition: Fair Referrals: None,Stated [Primary Care Provider] - 1-2 days Decision Time: 22:28
[2021-12-12 21:39] LABS: Glucose,Whole Blood 96 mg/dL (70-110)
[2021-12-12 21:59] LABS: Basophils # (A) 0.1 k/uL (0-0.2); Basophils % (A) 0 %; Eosinophils # (A) 0.2 k/uL (0-0.7); Eosinophils % (A) 1 %; HCT 39.1 % (34.0-46.0); HGB 13.6 gm/dL (11.4-16.0); Lymphocytes # (A) 1.5 k/uL (1.0-4.8); Lymphocytes % (A) 10 %; MCH 29.6 pg (25.0-35.0); MCHC 34.7 g/dL (31.0-37.0); MCV 85.2 fL (80.0-100.0); Mean Platelet Volume 7.9; Monocytes # (A) 0.7 k/uL (0-1.0); Monocytes % (A) 5 %; Neutrophils # (A) 12.3 k/uL (1.3-7.7); Neutrophils % (A) 83 %; Platelet Count 300 k/uL (150-450); RBC 4.58 m/uL (3.80-5.40); RDW 13.3 % (11.5-15.5); WBC 14.8 k/uL (3.8-10.6)
[2021-12-12 22:05] LABS: Partial Thromboplastin Time 23.1 sec (22.0-30.0); Prothrombin Time 10.9 sec (9.0-12.0)
[2021-12-12] MEDS ORDERED: NALOXONE 0.4 MG/ML 1 ML VIAL IV PRN (22:23)
[2021-12-12 22:26] LABS: ALT 21 U/L (4-34); AST 49 U/L (14-36); Acetaminophen <10.0 ug/mL; African American GFR (CKD) >90 (>60 ml/min/1.73 sqM); Albumin 4.4 g/dL (3.5-5.0); Alcohol <10 mg/dL; Alkaline Phosphatase 78 U/L (38-126); Anion Gap 9 mmol/L; Blood Urea Nitrogen 13 mg/dL (7-17); Calcium 9.1 mg/dL (8.4-10.2); Carbon Dioxide 24 mmol/L (22-30); Chloride 105 mmol/L (98-107); Creatine Kinase 491 U/L (30-135); Glucose 89 mg/dL (74-99); Magnesium 2.4 mg/dL (1.6-2.3); Non-African American GFR(CKD) 78 (>60 ml/min/1.73 sqM); Potassium 3.8 mmol/L (3.5-5.1); Salicylate <1.0 mg/dL; Sodium 138 mmol/L (137-145); Total Bilirubin 0.6 mg/dL (0.2-1.3); Total Protein 7.2 g/dL (6.3-8.2)
[2021-12-12] MEDS ORDERED: SODIUM CHLORIDE 0.9% 1,000 ML IV SCH (22:30)
[2021-12-12 22:44] VITALS: RESP 16
--- NOTE | 2021-12-12 23:00 | ED ---
Medical Decision Making - Medical Decision Making I did receive report from radiologist that patient's CT imaging appeared to be suspicious for cerebral edema uncertain etiology. I was in the CT suite along with the patient due to patient a little bit more awake and slightly agitated during computed tomography scan. Patient was moving a lot however we were able to get some films. Patient reevaluated bedside and still appears to be inebriated. patient case discussed with on-call neurologist, Dr. Santos who will review the films and make his recommendations. Repeat scan was performed under better conditions. Second set is noncontrast computed tomography scan of the brain is unremarkable and reviewed with radiologist. Patient be admitted for medical monitoring. - Lab Data Result diagrams: 12/12/21 21:35 12/12/21 21:35 Lab Results 12/12/21 12/12/21 12/12/21 Range/Units 21:32 21:35 21:35 WBC 14.8 H (3.8-10.6) k/uL RBC 4.58 (3.80-5.40) m/uL Hgb 13.6 (11.4-16.0) gm/dL Hct 39.1 (34.0-46.0) % MCV 85.2 (80.0-100.0) fL MCH 29.6 (25.0-35.0) pg MCHC 34.7 (31.0-37.0) g/dL RDW 13.3 (11.5-15.5) % Plt Count 300 (150-450) k/uL MPV 7.9 Neutrophils % 83 % Lymphocytes % 10 % Monocytes % 5 % Eosinophils % 1 % Basophils % 0 % Neutrophils # 12.3 H (1.3-7.7) k/uL Lymphocytes # 1.5 (1.0-4.8) k/uL Monocytes # 0.7 (0-1.0) k/uL Eosinophils # 0.2 (0-0.7) k/uL Basophils # 0.1 (0-0.2) k/uL PT (9.0-12.0) sec INR (<1.2) APTT (22.0-30.0) sec Sodium 138 (137-145) mmol/L Potassium 3.8 (3.5-5.1) mmol/L Chloride 105 (98-107) mmol/L Carbon Dioxide 24 (22-30) mmol/L Anion Gap 9 mmol/L BUN 13 (7-17) mg/dL Creatinine 0.99 (0.52-1.04) mg/dL Est GFR (CKD-EPI)AfAm >90 (>60 ml/min/1.73 sqM) Est GFR (CKD-EPI)NonAf 78 (>60 ml/min/1.73 sqM) Glucose 89 (74-99) mg/dL POC Glucose (mg/dL) 96 (70-110) mg/dL POC Glu Coil Connector ID Tiburcio Rodriguez Osmolality 293 (280-301) mosm/kg Plasma Lactic Acid Giovanni (0.7-2.0) mmol/L Calcium 9.1 (8.4-10.2) mg/dL Magnesium 2.4 H (1.6-2.3) mg/dL Total Bilirubin 0.6 (0.2-1.3) mg/dL AST 49 H (14-36) U/L ALT 21 (4-34) U/L Alkaline Phosphatase 78 (38-126) U/L Creatine Kinase 491 H (30-135) U/L Total Protein 7.2 (6.3-8.2) g/dL Albumin 4.4 (3.5-5.0) g/dL TSH 4.490 (0.465-4.680) mIU/L Salicylates <1.0 mg/dL Acetaminophen <10.0 ug/mL Serum Alcohol <10 mg/dL 12/12/21 12/12/21 Range/Units 21:35 21:35 WBC (3.8-10.6) k/uL RBC (3.80-5.40) m/uL Hgb (11.4-16.0) gm/dL Hct (34.0-46.0) % MCV (80.0-100.0) fL MCH (25.0-35.0) pg MCHC (31.0-37.0) g/dL RDW (11.5-15.5) % Plt Count (150-450) k/uL MPV Neutrophils % % Lymphocytes % % Monocytes % % Eosinophils % % Basophils % % Neutrophils # (1.3-7.7) k/uL Lymphocytes # (1.0-4.8) k/uL Monocytes # (0-1.0) k/uL Eosinophils # (0-0.7) k/uL Basophils # (0-0.2) k/uL PT 10.9 (9.0-12.0) sec INR 1.0 (<1.2) APTT 23.1 (22.0-30.0) sec Sodium (137-145) mmol/L Potassium (3.5-5.1) mmol/L Chloride (98-107) mmol/L Carbon Dioxide (22-30) mmol/L Anion Gap mmol/L BUN (7-17) mg/dL Creatinine (0.52-1.04) mg/dL Est GFR (CKD-EPI)AfAm (>60 ml/min/1.73 sqM) Est GFR (CKD-EPI)NonAf (>60 ml/min/1.73 sqM) Glucose (74-99) mg/dL POC Glucose (mg/dL) (70-110) mg/dL POC Glu Coil Connector ID Osmolality (280-301) mosm/kg Plasma Lactic Acid Giovanni 1.0 (0.7-2.0) mmol/L Calcium (8.4-10.2) mg/dL Magnesium (1.6-2.3) mg/dL Total Bilirubin (0.2-1.3) mg/dL AST (14-36) U/L ALT (4-34) U/L Alkaline Phosphatase (38-126) U/L Creatine Kinase (30-135) U/L Total Protein (6.3-8.2) g/dL Albumin (3.5-5.0) g/dL TSH (0.465-4.680) mIU/L Salicylates mg/dL Acetaminophen ug/mL Serum Alcohol mg/dL Disposition Clinical Impression: Drug overdose Disposition: ADMITTED IP TO THIS [facility] Condition: Fair Decision Time: 23:35
--- NOTE | 2021-12-12 23:02 | CT ---
EXAMINATION TYPE: CT brain wo con DATE OF EXAM: 12/12/2021 COMPARISON: 01/20/2018 HISTORY: 1216.4 CT DLP: AMS mGycm Automated exposure control for dose reduction was used. Exam limited somewhat by motion. Lateral ventricles appear smaller than previous exam. There is also reduction of the sulci and the sylvian fissures compared to old exam. There appears to be some reduct ion also in the perimesencephalic cistern. This could relate to some mild cerebral edema. There is so me decrease in the normal berumen-white matter differentiation even accounting for the motion artifact. The calvarium is intact. IMPRESSION: Within the limitations of the exam I suspect there is some degree of cerebral edema with decrease in the size of the sulci and sylvian fissures and lateral ventricles compared to old exam. Exam discusse d with the emergency room attending staff at 11:00 PM.
--- NOTE | 2021-12-12 23:39 | CT ---
EXAMINATION TYPE: CT brain wo con DATE OF EXAM: 12/12/2021 COMPARISON: Today HISTORY: repeat scan, too much motion artifact on first scan. Drug over dose. prior on PACS CT DLP: 2316.4 mGycm Automated exposure control for dose reduction was used. Quality of the exam is satisfactory. No evidence of any significant motion artifact. Ventricles have fairly normal size. The sylvian fissures are fairly well-defined. Sulci are within no rmal limits. No evidence of cerebral edema. The berumen-white matter differentiation appears normal. The calvarium is intact. IMPRESSION: Negative CT scan of the brain. No evidence of cerebral edema.
--- NOTE | 2021-12-13 02:48 | P.HPIM ---
History of Present Illness H&P Date: 12/12/21 The patient is a 26-year-old female with a PMH of polysubstance abuse who was brought into the emergency room by EMS due to altered mental status. The patient was somnolent at time of interview and no meaningful history could be obtained. As per the ED provider, the patient was brought in as she was noted to be acting strangely by her neighbor. The patient was initially noted to be agitated in the emergency room for which she was given IV push Ativan. She underwent an extensive evaluation with a CT brain that was unremarkable with an EKG showing sinus tachycardia at 124 bpm with no acute ST/T-wave changes noted as reviewed by me. Laboratory evaluation was remarkable for leukocytosis of 14.8, and creatinine kinase of 491. Review of systems: Unable to obtain Physical examination: General: Disheveled female, no distress, appears at stated age, obese Derm: no unusual rashes/lesions, warm Head: atraumatic, normocephalic, symmetric Eyes: EOMI, no lid lag, anicteric sclera, pupils equal round reactive to light ENT: Nose and ears atraumatic Neck: No cervical lymphadenopathy, trachea midline, supple Mouth: no lip lesion, mucus membranes dry Cardiovascular: S1S2 reg, no murmur, positive dorsalis pedis pulse bilateral, no edema Lungs: CTA bilateral, no rhonchi, no rales, no accessory muscle use Abdominal: soft, nontender to palpation, no guarding Ext: no gross muscle atrophy, no contractures, Neuro: Moving all extremities, no gross focal neuro deficits Psych: Arousable with physical stimuli, follows basic commands and goes back to sleep Assessment/plan Altered mental status, possibly secondary to substance use -Neurochecks -IV fluids -Fall precautions -Obtain urine tox screen Leukocytosis -Likely due to acute stressor -No sign of active infection at this time Elevated CK -Continue with IV fluids DVT prophylaxis -Heparin subcu The patient is admitted with an anticipated less than 2 midnight stay for evaluation of altered mental status. CODE STATUS: Full Code Discussed with: Patient Anticipated discharge date: Exam Anticipated discharge place: Home Past Medical History Past Medical History: No Reported History Additional Past Medical History / Comment(s): hepatitis C History of Any Multi-Drug Resistant Organisms: None Reported Past Surgical History: No Surgical Hx Reported Past Anesthesia/Blood Transfusion Reactions: Unable to Obtain Additional Past Anesthesia/Blood Transfusion Reaction / Comment(s): Pt has never had general or spinal anesthesia Past Psychological History: ADD/ADHD, Anxiety Smoking Status: Current every day smoker Past Alcohol Use History: None Reported Past Drug Use History: Cocaine, Heroin - Past Family History Mother History Unknown: Yes Additional Family Medical History / Comment(s): Mother has herniated discs Father History Unknown: Yes Additional Family Medical History / Comment(s): unsure- father "not around" Medications and Allergies Home Medications Medication Instructions Recorded Confirmed Type Buprenorphine HCl/Naloxone HCl 1 film SL BID 12/12/21 12/12/21 History [Suboxone 8 mg-2 mg Sl Film] QUEtiapine FUMARATE 50 mg PO HS 12/12/21 12/12/21 History Allergies Allergy/AdvReac Type Severity Reaction Status Date / Time No Known Allergies Allergy Verified 12/12/21 21:50 Physical Exam Vitals: Vital Signs Temp Pulse Resp BP Pulse Ox 12/13/21 00:00 110 H 16 96/68 12/12/21 23:00 112 H 16 97/56 96 12/12/21 21:51 113 H 16 97/49 96 12/12/21 20:53 24 12/12/21 20:52 121/60 12/12/21 20:49 99 F 110 H 24 100 Intake and Output 12/12/21 12/12/21 12/13/21 14:59 22:59 06:59 Other: Weight 90.718 kg Results CBC & Chem 7: 12/12/21 21:35 12/12/21 21:35 Labs: Abnormal Lab Results - Last 24 Hours (Table) 12/12/21 12/12/21 Range/Units 21:35 21:35 WBC 14.8 H (3.8-10.6) k/uL Neutrophils # 12.3 H (1.3-7.7) k/uL Magnesium 2.4 H (1.6-2.3) mg/dL AST 49 H (14-36) U/L Creatine Kinase 491 H (30-135) U/L
[2021-12-13 03:11] VITALS: BP 96/57; PULSE 102; TEMP 98.3
[2021-12-13 03:28] LABS: Amphetamine Screen,Urine Detected (NotDetected); Barbiturate Screen,Urine Not Detected (NotDetected); Benzodiazepines Screen,Urine Detected (NotDetected); Cocaine Screen,Urine Not Detected (NotDetected); Methadone Screen, Urine Not Detected (NotDetected); Opiate Screen,Urine Not Detected (NotDetected); Oxycodone Screen, Urine Not Detected (NotDetected); Phencyclidine Screen,Urine Not Detected (NotDetected); Tricyclic Antidepressant,Urine Not Detected (NotDetected); Urn Cannabinoid Scrn Not Detected (NotDetected)
[2021-12-13] MEDS ORDERED: HEPARIN SODIUM,PORCINE/PF 5,000 UNIT/0.5 ML SYRINGE SQ SCH (08:00)
--- NOTE | 2021-12-13 08:46 | P.DS ---
Providers Date of admission: 12/12/21 22:23 Expected date of discharge: 12/13/21 Attending physician: Rafy Angela MD Primary care physician: Stated None Hospital Course: Discharge Diagnosis: Polysubstance abuse Transient Alteration in mental status secondary to above Leukocytosis Elevated CK-MB Hospital Course: The patient is a 26-year-old female with a PMH of polysubstance abuse who was brought into the emergency room by EMS due to altered mental status. The patient was somnolent at time of interview and no meaningful history could be obtained. As per the ED provider, the patient was brought in as she was noted to be acting strangely by her neighbor. The patient was initially noted to be agitated and anxious in the emergency room for which she was given IV push Ativan. She then underwent an extensive evaluation with a CT brain that was unremarkable, showing no signs of acute intercranial process. EKG showing sinus tachycardia at 124 bpm with no acute ST/T-wave changes noted. Laboratory evaluation was remarkable for leukocytosis of 14.8, and creatinine kinase of 491. Urine drug screen was positive for amphetamines, methamphetamines, and benzodiazepines. Patient was admitted under our services overnight and received IV hydration. This morning patient is very agitated and pacing the floors demanding to be discharged. Patient was alert to person, place, time, and situation. She showed no signs of neurological deficits. She denied having any complaints including headache, lightheadedness, dizziness, chest pain, palpitations, shortness of breath, no numbness/tingling/weakness in her extremities. Vital signs stable. Patient shows no signs of acute distress at this time. Patient strongly encouraged to stop all drug use. Instructional Leader, Mahin notified patient's State Guardian of her hospitalization and discharge. Physical examination: Patient seen and examined at bedside. Vital signs reviewed and stable. General: Nontoxic, no distress and appears stated age. Derm: Skin warm and dry, normal coloration for ethnicity. Head: Atraumatic, normocephalic and symmetric. Eyes: EOMs intact, no lid lag, and anicteric sclera Mouth: no lip lesions, mucus membranes moist Cardiovascular: regular rate and rhythm with normal S1S2, no murmur, positive posterior tibial pulses bilaterally, and cap refill < 2 seconds. Lungs: Respirations even, regular, and unlabored on room air. Lungs CTA bilaterally, no rhonchi, no rales, no wheezing, and no accessory muscle usage. Abdominal: soft, nontender to palpation, no guarding, no appreciable organomegaly Ext: ROM intact. No gross muscle atrophy, no edema, no contractures Neuro: Speech clear, face symmetrical and CN II-XII grossly intact with no noted focal neuro deficits Psych: Alert and oriented to person, place, time, and situation. Appropriate and pleasant affect. A total of 33 minutes of time were spent preparing this complex discharge summary. Pt was discharged on 12/13/21 at 8:43 AM. Patient Condition at Discharge: Stable Plan - Discharge Summary Discharge Rx Participant: Yes New Discharge Prescriptions: Continue Buprenorphine HCl/Naloxone HCl [Suboxone 8 mg-2 mg Sl Film] 1 film SL BID QUEtiapine FUMARATE 50 mg PO HS Discharge Medication List Buprenorphine HCl/Naloxone HCl [Suboxone 8 mg-2 mg Sl Film] 1 film SL BID 12/12/21 [History] QUEtiapine FUMARATE 50 mg PO HS 12/12/21 [History] Follow up Appointment(s)/Referral(s): Tang Tanner MD [REFERRING] - 1 Week Activity/Diet/Wound Care/Special Instructions: Activity: As tolerated. Diet: Heart healthy and carb consistent diet. Avoid salts, or foods with hidden salts such as canned or boxed foods and frozen dinners. Extra salt makes your heart work harder and traps the fluid in your body for longer. Special Instructions: Take all of your medications as directed and remember to keep all of your doctor's appointments and follow-up as needed. Strongly encourage all cessation of drug use. Thank you for allowing us to participate in your care, it was truly a pleasure having you for our patient!!! Discharge Disposition: HOME SELF-CARE
== END 2021-12-13 08:47 | disposition home or self-care (01) ==
LOC: EC 20:33 → 6NMEDSUR 22:23 → 4SSUR 23:24
PROVIDERS: ADMIT Internal Medicine; ATTEND Internal Medicine
DX: F19.10 Other psychoactive substance abuse, uncomplicated (principal); R41.82 Altered mental status, unspecified; R45.1 Restlessness and agitation; D72.829 Elevated white blood cell count, unspecified; R74.8 Abnormal levels of other serum enzymes; R00.0 Tachycardia, unspecified; B19.20 Unspecified viral hepatitis C without hepatic coma; F41.9 Anxiety disorder, unspecified; F90.9 Attention-deficit hyperactivity disorder, unspecified type; F17.200 Nicotine dependence, unspecified, uncomplicated; Z79.899 Other long term (current) drug therapy; Z71.51 Drug abuse counseling and surveillance of drug abuser; Z82.69 Family history of other diseases of the musculoskeletal system and connective tissue
CPT/HCPCS: 96376; 96374; 96375; 99285; 36415; 93005; 83930; 80053; 82550; 83605; 83735; 84443; 85025; 85610; 85730; 80306; 80143; 80179; 70450; G0378 ×2; G0480; J2060; J2310; 80320

== ENCOUNTER 2022-05-15 12:06 | Emergency (ER) | payer OTHER ==
[2022-05-15 12:17] VITALS: BP 120/93; PULSE 103; RESP 18; TEMP 97.8
[2022-05-15 13:19] LABS: Amphetamine Screen,Urine Detected (NotDetected); Barbiturate Screen,Urine Not Detected (NotDetected); Benzodiazepines Screen,Urine Not Detected (NotDetected); Cocaine Screen,Urine Not Detected (NotDetected); Methadone Screen, Urine Not Detected (NotDetected); Opiate Screen,Urine Not Detected (NotDetected); Oxycodone Screen, Urine Not Detected (NotDetected); Phencyclidine Screen,Urine Not Detected (NotDetected); Tricyclic Antidepressant,Urine Not Detected (NotDetected); Urn Cannabinoid Scrn Not Detected (NotDetected)
--- NOTE | 2022-05-15 14:05 | ED ---
General Adult HPI - General Chief complaint: Overdose Stated complaint: Overdose Time Seen by Provider: 05/15/22 12:18 Source: patient, EMS, RN notes reviewed, old records reviewed Mode of arrival: EMS Limitations: no limitations - History of Present Illness Initial comments: This is a 27-year-old female who was found with agonal respirations and some p inpoint pupils. At that time patient was administered 2 mg of Narcan the patient woke up immediately. Patient admits to doing heroin or fentanyl she states she does not which was. Patient also admits to methamphetamine yesterday and she feels exhausted because she was doing meth yesterday. Patient states she's had no recent fever chills or cough per patient denies headache patient denies chest pain patient denies difficulty breathing shortest breath per patient denies abdominal pain. Patient denies any nausea vomiting diarrhea. Patient states she just feels extremely tired. - Related Data Home Medications Medication Instructions Recorded Confirmed No Known Home Medications 05/15/22 05/15/22 Allergies Allergy/AdvReac Type Severity Reaction Status Date / Time No Known Allergies Allergy Verified 05/15/22 12:54 Review of Systems ROS Statement: Those systems with pertinent positive or pertinent negative responses have been documented in the HPI. ROS Other: All systems not noted in ROS Statement are negative. Past Medical History Past Medical History: No Reported History Additional Past Medical History / Comment(s): hepatitis C History of Any Multi-Drug Resistant Organisms: None Reported Past Surgical History: No Surgical Hx Reported Past Anesthesia/Blood Transfusion Reactions: Unable to Obtain Additional Past Anesthesia/Blood Transfusion Reaction / Comment(s): Pt has never had general or spinal anesthesia Past Psychological History: ADD/ADHD, Anxiety Smoking Status: Current every day smoker Past Alcohol Use History: None Reported Past Drug Use History: Cocaine, Heroin - Past Family History Mother History Unknown: Yes Additional Family Medical History / Comment(s): Mother has herniated discs Father History Unknown: Yes Additional Family Medical History / Comment(s): unsure- father "not around" General Exam - General Exam Comments Initial Comments: GENERAL: Patient is well-developed and well-nourished. Patient is nontoxic and well- hydrated and is in no acute distress. ENT: Neck is soft and supple. No significant lymphadenopathy is noted. Oropharynx is clear. Moist mucous membranes. Neck has full range of motion without eliciting any pain. EYES: The sclera were anicteric and conjunctiva were pink and moist. Extraocular movements were intact and pupils were equal round and reactive to light. Eyelids were unremarkable. PULMONARY: Unlabored respirations. Good breath sounds bilaterally. No audible rales rhonchi or wheezing was noted. CARDIOVASCULAR: There is a regular rate and rhythm without any murmurs gallops or rubs. ABDOMEN: Soft and nontender with normal bowel sounds. SKIN: Skin is clear with no lesions or rashes and otherwise unremarkable. NEUROLOGIC: Patient is alert and oriented x3. Cranial nerves II through XII are grossly intact. Motor and sensory are also intact. Normal speech, volume and content. Symmetrical smile. MUSCULOSKELETAL: Normal extremities with adequate strength and full range of motion. No lower extremity swelling or edema. No calf tenderness. LYMPHATICS: No significant lymphadenopathy is noted PSYCHIATRIC: Normal psychiatric evaluation. Limitations: no limitations Course Vital Signs 05/15/22 12:13 Temperature 97.8 F Pulse Rate 103 H Respiratory 18 Rate Blood Pressure 120/93 O2 Sat by Pulse 99 Oximetry Medical Decision Making - Medical Decision Making Patient was alert and oriented 3 the entire visit in the emergency department. Patient would like to be discharged. Patient is able to walk on her own without any assistance. - Lab Data Lab Results 05/15/22 Range/Units 12:27 Urine Opiates Screen Not Detected (NotDetected) Ur Oxycodone Screen Not Detected (NotDetected) Urine Methadone Screen Not Detected (NotDetected) Ur Propoxyphene Screen Not Detected (NotDetected) Ur Barbiturates Screen Not Detected (NotDetected) U Tricyclic Antidepress Not Detected (NotDetected) Ur Phencyclidine Scrn Not Detected (NotDetected) Ur Amphetamines Screen Detected H (NotDetected) U Methamphetamines Scrn Detected H (NotDetected) U Benzodiazepines Scrn Not Detected (NotDetected) Urine Cocaine Screen Not Detected (NotDetected) U Marijuana (THC) Screen Not Detected (NotDetected) Disposition Clinical Impression: Methamphetamine abuse, Narcotic overdose Disposition: HOME SELF-CARE Condition: Good Instructions (If sedation given, give patient instructions): Adult Overdose (ED) Is patient prescribed a controlled substance at d/c from ED?: No Referrals: None,Stated [Primary Care Provider] - 1-2 days Time of Disposition: 14:00
== END 2022-05-15 14:30 | disposition home or self-care (01) ==
LOC: EC 12:06
DX: T40.1X1A Poisoning by heroin, accidental (unintentional), initial encounter (principal); F15.10 Other stimulant abuse, uncomplicated; F41.9 Anxiety disorder, unspecified; F17.200 Nicotine dependence, unspecified, uncomplicated
CPT/HCPCS: 80306; 99284

== ENCOUNTER 2022-11-09 20:39 | Emergency (ER) | payer OTHER ==
[2022-11-09 20:58] VITALS: BP 96/66; RESP 16; TEMP 98.4
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
[2022-11-09 21:05] VITALS: PULSE 120
== END 2022-11-09 20:47 | disposition left against medical advice (07) ==
LOC: EC 20:39
DX: T50.7X1A Poisoning by analeptics and opioid receptor antagonists, accidental (unintentional), initial encounter (principal); Z86.59 Personal history of other mental and behavioral disorders; F17.200 Nicotine dependence, unspecified, uncomplicated; Z53.29 Procedure and treatment not carried out because of patient's decision for other reasons
CPT/HCPCS: 99284

== ENCOUNTER 2023-08-03 06:57 | Emergency (ER) | payer OTHER ==
[2023-08-03 07:21] VITALS: TEMP 98.4
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
[2023-08-03 08:59] VITALS: BP 104/58; PULSE 102; RESP 18
== END 2023-08-03 08:50 | disposition home or self-care (01) ==
LOC: EC 06:57
DX: S02.2XXA Fracture of nasal bones, initial encounter for closed fracture (principal); S00.83XA Contusion of other part of head, initial encounter; L02.413 Cutaneous abscess of right upper limb; F17.200 Nicotine dependence, unspecified, uncomplicated; F14.90 Cocaine use, unspecified, uncomplicated; Z86.59 Personal history of other mental and behavioral disorders; Y04.8XXA Assault by other bodily force, initial encounter
CPT/HCPCS: 70450; 70486; 72125; 99285